=== PATIENT | female | born 1995 | race Caucasian/White ===

== ENCOUNTER → 2018-01-09 | Outpatient (CLI) | payer MEDICAID ==
[~2018-01-09] MED LIST: ACYC-50 PO; ANTIBIOTIC; CIPR250S2 PO; DEXL30CA5 PO; ETHI1TAB26 PO; IBUP-1618 PO; NORG1TAB5 PO; OMEP-137 PO; ONDA4TAB9 PO; PAN40 PO; RANI150C14 PO; SUCR1TAB85 PO
--- NOTE | 2018-01-09 15:06 | RADIOLOGY IMAGING REPORT ---
FACILITY: [facility] - [place] PATIENT NAME: Cara Jackman : 1995 MR: [id number] V: [id number] EXAM DATE: ORDERING PHYSICIAN: ADAN THAKKAR TECHNOLOGIST: Location: [facility] Patient: Cara Jackman : 1995 Visit/Account:[id number] Date of Sevice: 01/09/2018 CERVICAL SPINE 2 OR 3 VIEW COMPARISONS: None. ADDITIONAL PERTINENT HISTORY: Neck pain and cervicalgia. FINDINGS: Vertebral body heights and alignment: Mild reversal of normal cervical lordosis centered at C5-C6. Vertebral bodies: Negative. Disc spaces: Negative. Craniocervical junction: Negative. Cervical thoracic junction: Negative. Prevertebral soft tissues: Negative. Surrounding soft tissues: Negative. IMPRESSION: 1. Mild reversal of normal cervical lordosis centered at C5-C6. 2. Otherwise normal examination. Report Dictated By: Dionisio Milian MD at 01/09/2018 3:00 PM Report E-Signed By: Dionisio Milian MD at 01/09/2018 3:01 PM WSN:[email or web address]
== END ==
LOC: RAD 13:58
DX: M40.50 Lordosis, unspecified, site unspecified (principal)
CPT/HCPCS: 72040

== ENCOUNTER → 2018-04-03 | Outpatient (CLI) | payer MEDICAID ==
[~2018-04-03] MED LIST changes: +HYDR-4309 PO; +LOR5/325 PO; +TRAM-420 PO
--- NOTE | 2018-04-03 15:59 | RADIOLOGY IMAGING REPORT ---
FACILITY: [facility] - [place] PATIENT NAME: Cara Jackman : 1995 MR: [id number] V: [id number] EXAM DATE: ORDERING PHYSICIAN: NOAH HAYWARD TECHNOLOGIST: Location: [facility] [place] Patient: Cara Jackman : 1995 Visit/Account:[id number] Date of Sevice: 04/03/2018 ABDOMEN/PELVIS W/O CONTRAST HISTORY: Possible Kidney stone, lower back pain radiating to left side, hematuria TECHNIQUE: Axial images acquired through the abdomen/pelvis. Coronal and sagittal reformatting also performed. No IV contrast administered. Dose Lowering Technique One of the following dose optimization techniques was utilized in the performance of this exam: Autom ated exposure control; adjustment of the mA and/or kV according to the patient's size; or use of an i terative reconstruction technique. Specific details can be referenced in the facility's radiology C T exam operational policy. COMPARISON: None. FINDINGS: Visualized lung bases: Negative. Hepatobiliary: Postsurgical changes from a cholecystectomy Spleen: Negative. Adrenals: Negative. Pancreas: Negative. Kidneys ureters and bladder: There is a moderate left hydronephrosis and left hydroureter. There is a 3 mm calcification seen along the posterior left side of the bladder. This may be in the distal mo st portion of the left UVJ or has just passed through the left UVJ into the bladder. There are multiple nonobstructing calculi seen in the renal collecting systems bilaterally. The larg est calculus on the right measures approximately 3 mm in diameter. The largest calculus on the left measures approximately 4 mm. Genitalia: Negative. GI: No evidence of bowel obstruction or bowel wall thickening. The appendix is visualized and does not appear inflamed. Vessels/spaces/nodes: There are several mildly prominent lymph nodes seen in the right lower quadran t. A outside sales representative insurance lymph node measures 1.6 x 1.1 cm Bones/soft tissues: There is a small umbilical hernia containing fat Additional findings: None pertinent. IMPRESSION: There is a moderate left hydronephrosis and left hydroureter. A 3 mm calcification is seen along the posterior left side the bladder. This may be in the distalmost portion of the left UVJ or has just passed through the left UVJ into the bladder. Multiple nonobstructing calculi seen in both renal collecting systems Several mildly prominent lymph nodes are identified in the right lower quadrant. These could be reac tive. Clinical correlation needed. The appendix is visualized and does not appear inflamed Results were called to NOAH HAYWARD at 04/03/2018 3:54 PM. Report Dictated By: Ramya Batres MD at 04/03/2018 3:40 PM Report E-Signed By: Ramya Batres MD at 04/03/2018 3:55 PM WSN:[email or web address]
== END ==
LOC: CT 14:56
PROVIDERS: ATTEND Student in an Organized Health Care Education/Training Program
DX: N13.30 Unspecified hydronephrosis (principal); N20.9 Urinary calculus, unspecified; N13.4 Hydroureter; N20.0 Calculus of kidney; R59.0 Localized enlarged lymph nodes
CPT/HCPCS: 74176

== ENCOUNTER 2018-07-11 18:27 | Emergency (ER) | payer MEDICAID ==
[~2018-07-11 18:27] MED LIST changes: +CHOL10005 PO; +CYCL10TA29 PO; +GABA-547 PO; +GABA-549 PO; +NAPR220C12 PO; +OXCA150T47 PO; +SULF-198 PO; +VENL75TA12 PO; +VITA1CAP46 PO
--- NOTE | 2018-07-11 18:40 | ER Report ---
History and Physical Time Seen By MD: 18:37 Hx. of Stated Complaint: Patient with back pain since Monday after leaning over to grab something out of refrigerator. Patient had dry needling and saw PT yesterday. Worse today. HPI/ROS CHIEF COMPLAINT: Low back pain HISTORY OF PRESENT ILLNESS: This is a 22-year-old female presents to the emergency department for low back pain. Patient states that this past Monday she was bending over picking something up out of the refrigerator and developed low back pain. Patient states that she's had left-sided low back pain since then slowly improving over the course of week, did follow-up with her physical therapist tried dry needling which did seem to improve yesterday, however today at 12:00 she states the pain became significantly worse. Patient states that the pain became so intense that she said her come in for further evaluation. Patient has never had imaging of her lower back. Patient denies fevers or chills. No difficulties with urination, no retention. No loss of bowel. REVIEW OF SYSTEMS: Respiratory: No cough, no dyspnea. Cardiovascular: No chest pain, no palpitations. Gastrointestinal: No vomiting, no abdominal pain. Musculoskeletal: As above. Allergies: Coded Allergies: orange juice (Verified Adverse Reaction, Unknown, nausea / vomiting; vaginal infection, 07/11/18) Home Meds Active Scripts Hydrocodone Bit/Acetaminophen (HYDROCODON-ACETAMINOPHEN 5-325) 1 Each Tablet, 1 EACH PO Q4-6H PRN for PAIN, #6 TAB 0 Refills Prov:LEONARDO MITTAL [employer] OFFICER-BC 07/11/18 Sucralfate (CARAFATE) 1 Gm Tablet, 1 GM PO ACHS, #120 TAB Prov:DUC BARRIGA WAREHOUSE PRODUCTION WORKER 01/10/16 Reported Medications Gabapentin (GABAPENTIN) 300 Mg Capsule, 1200 MG PO QHS, CAPSULE 07/11/18 Hydrochlorothiazide (HYDROCHLOROTHIAZIDE) 25 Mg Tablet, 0.5 TAB PO QDAY, TAB 07/11/18 Oxcarbazepine (TRILEPTAL) 150 Mg Tablet, 150 MG PO BID 07/10/18 Cyclobenzaprine Hcl (CYCLOBENZAPRINE HCL) 10 Mg Tablet, 10 MG PO QHS, #9 TAB 07/10/18 Naproxen Sodium (ALEVE) Unknown Strength Capsule, PO TID, CAPSULE 07/10/18 Vitamin B Complex (VITAMIN B COMPLEX) 1 Each Capsule, 1 EACH PO BID, CAPSULE 07/10/18 Cholecalciferol (Vitamin D3) (VITAMIN D3) 1,000 Unit Tablet, 4000 UNIT PO DAILY, TAB 07/10/18 Venlafaxine Hcl (VENLAFAXINE HCL) 75 Mg Tab, 75 MG PO BID, #5 TAB 07/10/18 Gabapentin (GABAPENTIN) 300 Mg Capsule, 900 MG PO BID, CAPSULE 07/10/18 Discontinued Reported Medications Gabapentin (GABAPENTIN) 100 Mg Capsule, 100 MG PO DAILY, CAPSULE 07/10/18 Oxcarbazepine (TRILEPTAL) Unknown Strength Tablet, PO 07/10/18 Discontinued Scripts Sulfamethoxazole/Trimet 800-160 Mg Tab (BACTRIM DS TABLET) 1 Each Tablet, 1 TAB PO Q12H for 3 Days, #6 TAB 0 Refills Prov:YESYNOAH DO 07/10/18 Omeprazole (OMEPRAZOLE) 20 Mg Tablet.dr, 20 MG PO QDAY, #30 TAB Prov:DUC BARRIGA NP 01/10/16 Hydrocodone Bit/Acetaminophen (HYDROCODON-ACETAMINOPHEN 5-325) 1 Each Tablet, 1 EACH PO Q4-6H PRN for pain, #12 TAB 0 Refills Prov:RENATE MADDOX MD 04/03/18 Ondansetron (ONDANSETRON ODT) 4 Mg Tab.rapdis, 4 MG PO Q6H, #10 TAB One tablet every 6 hours as needed for nausea and vomiting. Prov:DUC BARRIGA NP 01/10/16 Past Medical/Surgical History The patient has a past medical and surgical history of seizures, asthma, urinary tract infections, cholecystectomy, wisdom teeth extraction. Reviewed Nurses Notes: Yes Hx Smoking: No Hx Substance Use Disorder: No Hx Alcohol Use: Yes (couple a week) Constitutional Vital Sign - Last 24 Hours 07/11/18 07/11/18 18:30 20:57 Temp 98.1 Pulse 99 94 Resp 16 14 B/P (MAP) 152/88 138/89 (105) Pulse Ox 95 96 O2 Delivery Room Air Room Air Physical Exam General Appearance: The patient is alert, has no immediate need for airway protection and no current signs of toxicity. Eyes: Pupils equal and round no injection. Respiratory: Chest is non tender, lungs are clear to auscultation. Cardiac: regular rate and rhythm. Gastrointestinal: Abdomen is soft and non tender, no masses, bowel sounds nor mal. Musculoskeletal: Neck: Neck is supple and non tender. Mild left lower back pain with palpation. No deformities or crepitus. Extremities have full range of motion and are non tender. Skin: No rashes or lesions. DIFFERENTIAL DIAGNOSIS: After history and physical exam differential diagnosis was considered for back pain including but not limited to muscular pain, herniated disc, spine fracture, intra-abdominal causes and urinary tract infection. Medical Decision Making EKG/Imaging Imaging Location: [facility] - [place] Patient: Cara aJckman : 1995 Visit/Account:[id number] Date of Sevice: 07/11/2018 EXAMINATION: Lumbar spine radiographs 4 views HISTORY: Low back pain. COMPARISON: CT of the abdomen and pelvis from 04/03/2018. FINDINGS: AP, bilateral oblique, and lateral views of the lumbar spine are obtained. Bones: There are 5 nonrib-bearing lumbar type vertebral bodies. Vertebral body heights are maintained. No evidence of acute fracture. Disc spaces: Intervertebral disc heights are maintained. Small anterior osteo phyte at the anterior inferior endplate of L2. Posterior elements: Negative. Alignment: Normal. Hardware: Surgical clips in the right upper quadrant of the abdomen. Soft tissues: Negative. IMPRESSION: No evidence of acute fracture or malalignment of the lumbar spine. Report Dictated By: Moses Koch MD at 07/11/2018 8:12 PM Report E-Signed By: Moses Koch MD at 07/11/2018 8:16 PM WSN:[id number] ED Course/Re-evaluation Clinical Indication for ER IV: IV Access ED Course The patient was admitted to a room. A history and physical were pain. Differential diagnoses were considered. IV was started. 30 mg IV Toradol, 2.5 mg IV Valium were given. An x-ray of the lumbar was negative for any acute abnorma lities. I did review the results with the patient. She states she is feeling much better after medications. I did tell patient that I feel this is a muscular spasm or strain that he will likely resolve with NSAIDs and therapy. I did recommend following up for continued physical therapy, follow-up with her primary care via her for reevaluation. I did send the patient home with a take home pack for hydrocodone and a prescription as well. The patient had no other questions or concerns at this time and was discharged home. Decision to Disposition Date: Jul 11, 2018 Decision to Disposition Time: 20:43 Depart Departure Latest Vital Signs Vital Signs Date Time Temp Pulse Resp B/P (MAP) Pulse Ox O2 Delivery O2 Flow Rate FiO2 07/11/18 20:57 94 14 138/89 (105) 96 Room Air 07/11/18 18:30 98.1 Impression: Primary Impression: Lower back pain Condition: Improved Disposition: HOME OR SELF-CARE Referrals: NOAH HAYWARD DO (PCP) New Scripts Hydrocodone Bit/Acetaminophen (HYDROCODON-ACETAMINOPHEN 5-325) 1 Each Tablet 1 EACH PO Q4-6H PRN for PAIN, #6 TAB 0 Refills Prov: LEONARDO MITTAL-BC 07/11/18 Patient Instructions: Acute Low Back Pain (ED) Additional Instructions: Be sure to follow up with physical therapy for continued treatment. Follow-up with your primary care provider within the next 3-7 days for reevaluation. Take the hydrocodone as prescribed. Continue taking your regular medications as prescribed. Drink plenty of water. Get plenty of rest. Return to the emergency department for any other concerns or worsening symptoms. Problem Qualifiers Primary Impression: Lower back pain Chronicity: acute Back pain laterality: left Sciatica presence: without sciatica Qualified Codes: M54.5 - Low back pain LEONARDO MITTAL [employer]IC W[employer] OFFICER-BC Jul 11, 2018 18:40
[2018-07-11] MEDS ORDERED: HYDR-2966 PO (18:41)
[2018-07-11] MEDS ORDERED: GABA-549 PO (18:42)
[2018-07-11] MEDS ORDERED: ONDANSETRON 4 MG/2 ML VIAL IVP ONE (18:55)
[2018-07-11] MEDS ORDERED: KETOROLAC 30 MG/ML VIAL IVP ONE (18:55)
[2018-07-11] MEDS ORDERED: DIAZEPAM 50 MG/10 ML MDV IM ONE (18:55)
[2018-07-11] MEDS ORDERED: DIAZEPAM 50 MG/10 ML MDV IVP ONE (19:10)
--- NOTE | 2018-07-11 20:21 | RADIOLOGY IMAGING REPORT ---
FACILITY: [facility] - [place] PATIENT NAME: Cara Jackman : 1995 MR: [id number] V: [id number] EXAM DATE: ORDERING PHYSICIAN: LEONARDO MITTAL TECHNOLOGIST: Location: [facility] Patient: Cara Jackman : 1995 Visit/Account:[id number] Date of Sevice: 07/11/2018 EXAMINATION: Lumbar spine radiographs 4 views HISTORY: Low back pain. COMPARISON: CT of the abdomen and pelvis from 04/03/2018. FINDINGS: AP, bilateral oblique, and lateral views of the lumbar spine are obtained. Bones: There are 5 nonrib-bearing lumbar type vertebral bodies. Vertebral body heights are maintaine d. No evidence of acute fracture. Disc spaces: Intervertebral disc heights are maintained. Small anterior osteophyte at the anterior i nferior endplate of L2. Posterior elements: Negative. Alignment: Normal. Hardware: Surgical clips in the right upper quadrant of the abdomen. Soft tissues: Negative. IMPRESSION: No evidence of acute fracture or malalignment of the lumbar spine. Report Dictated By: Moses Koch MD at 07/11/2018 8:12 PM Report E-Signed By: Moses Koch MD at 07/11/2018 8:16 PM WSN:[id number]
[2018-07-11] MEDS ORDERED: HYDR-385 PO (20:44)
[2018-07-11 20:57] VITALS: BP 138/89
[2018-07-11] MEDS ORDERED: ACET/HYDROC 5/325MG TH ER ONLY 2 TAB/BOTTLE PO ONE (21:05)
== END 2018-07-11 21:05 | disposition home or self-care (01) ==
LOC: ER 18:45
DX: M54.5 Low back pain (principal)
CPT/HCPCS: 72120; 96374; 96375; 99284; J1885; J2405; J3360

== ENCOUNTER 2018-08-01 00:58 | Observation (INO) | payer MEDICAID ==
[2018-08-01] VITALS (10 sets, daily range): BP systolic 116–150; BP diastolic 59–90
[~2018-08-01] VITALS: Ht 147.3 cm; Wt 82.1 kg
[~2018-08-01 00:58] MED LIST changes: +HYDR-2966 PO; +HYDR-385 PO; +HYDR12.561 PO; +SCOP1PAT16 TD
[2018-08-01] MEDS ORDERED: ceFAZolin(*) 1 GM VIAL 1 GM in NS(*) 0.9% 100 ML ADDVANT BAG 100 ML IVPB ONE (06:30)
[2018-08-01 06:32] LABS: PLATELET COUNT, AUTOMATED 394 K/uL (150-450)
[2018-08-01] MEDS ORDERED: ROPIVACAINE 0.2% 20 ML VIAL ONE (06:50)
[2018-08-01] MEDS ORDERED: PROPOFOL EMUL(*) 10MG/ML 20 ML 20 ML ONE (07:11)
[2018-08-01] MEDS ORDERED: DEXAMETHASONE SOD 4 MG/ML VIAL ONE (07:11)
[2018-08-01] MEDS ORDERED: ONDANSETRON 4 MG/2 ML VIAL ONE (07:11)
[2018-08-01] MEDS ORDERED: SUGAMMADEX SOD 200 MG/2 ML SDV ONE (07:11)
[2018-08-01] MEDS ORDERED: LIDOCAINE MPF 1% 5 ML VIAL ONE (07:11)
[2018-08-01] MEDS ORDERED: fentaNYL CITR 250 MCG/5 ML AMP ONE (07:11)
[2018-08-01] MEDS ORDERED: ROCURONIUM BROM 10 MG/ML 10 ML ONE (07:11)
[2018-08-01] MEDS ORDERED: KETAMINE HCL-NS 50 MG/5 ML SYR ONE (07:13)
[2018-08-01] MEDS ORDERED: HYDROmorphone HCL 2 MG/ML SDV ONE (07:13)
[2018-08-01] MEDS ORDERED: SUGAMMADEX SOD 500 MG/5 ML SDV ONE (07:24)
[2018-08-01] MEDS ORDERED: BUPIV/EPI 0.25% 1:200,000 50ML INFIL ONE (07:32)
[2018-08-01] MEDS ORDERED: KETOROLAC 30 MG/ML VIAL ONE ×2 (08:54→10:14)
[2018-08-01] MEDS ORDERED: PHENAZOPYRIDINE 200 MG TAB PO ONE (09:30)
[2018-08-01] MEDS: DLR(*) 1000 ML BAG 1,000 ML IV PRN ×2 (09:52→20:48)
[2018-08-01] MEDS ORDERED: SIMETHICONE 80 MG CHEW CHEW PRN (09:55)
[2018-08-01] MEDS ORDERED: PROMETHAZINE 25 MG/ML 1 ML AMP IVP PRN (09:55)
[2018-08-01] MEDS ORDERED: oxyCODONE HCL 5 MG CAP PO PRN (09:55)
[2018-08-01] MEDS ORDERED: ONDANSETRON 4 MG/2 ML VIAL IV PRN (09:55)
[2018-08-01] MEDS ORDERED: MORPHINE 2 MG/ML SYR IVP PRN (09:55)
[2018-08-01] MEDS ORDERED: fentaNYL CITR 100 MCG/2 ML AMP ONE ×3 (10:02→10:31)
--- NOTE | 2018-08-01 10:12 | Post Operative Note ---
Operative Note - MAKE UP ARTIST Operative Day Date: Aug 01, 2018 Time: 09:58 Physicians Surgeon: Noah Crisostomo Wrap Turner: Laine Ford Anesthesia: GET 0.25% marcaine Diagnosis Pre-Op Diagnosis: 22 AUB/HMB -failed conservative medical therapy -Desires sugical management. Post-Op Diagnosis: Same Procedure Findings: Normal uterus and ovaries bilaterally. Normal fallopian tubes bilaterally. Smooth liver, absent galbladder. Procedure(s): RATLH with BS Diagnostic Cystoscopy Nexplanon Removal Specimen Removed:(Maybe N/A): Uterus and Bilateral fallopian tubes Complications: 0 known Fluids Fluids: 2500 cc 300 cc U/o Estimated Blood Loss: 50 cc Dictated Date OP Note Dictated: Aug 01, 2018 Time OP Note Dictated: 10:12 NOAH CRISOSTOMO DO Aug 01, 2018 10:12
[2018-08-01] MEDS ORDERED: LIDOCAINE/SOD BICARB 8.4% SYR ID ONE (10:30)
[2018-08-01] MEDS ORDERED: NORMOSOL R SOLN(*) 1000 ML BAG 1,000 ML IV PRN (10:30)
[2018-08-01] MEDS ORDERED: FAMOTIDINE 20 MG TAB PO ONE (10:30)
[2018-08-01] MEDS ORDERED: MIDAZOLAM 2 MG/2 ML VIAL IVP PRN (10:30)
[2018-08-01] MEDS ORDERED: ceFAZolin(*) 2GM/D5W 50ML 50 ML IVPB ONE (10:30)
--- NOTE | 2018-08-01 12:32 | OPERATIVE REPORT 1 ---
EVENT DATE: August 01, 2018 SURGEON: Eitan Crisostomo DO ANESTHESIOLOGIST: Messi Reich M.D. ANESTHESIA: General endotracheal intubation with 0.25% Marcaine for local only. WOOL SACKER: Laine Ford MD PREOPERATIVE DIAGNOSIS 1. 22-year-old 1, para 1. 2. Abnormal uterine bleeding/heavy menstrual bleeding with failed conservative medical therapy and desires permanent surgical management. POSTOPERATIVE DIAGNOSIS 1. 22-year-old 1, para 1. 2. Abnormal uterine bleeding/heavy menstrual bleeding with failed conservative medical therapy and desires permanent surgical management. PROCEDURE PERFORMED Robotic assisted total laparoscopic hysterectomy with bilateral salpingectomy, diagnostic cystoscopy and Nexplanon removal. FINDINGS Normal uterus and ovaries bilaterally, normal fallopian tubes bilaterally, smooth liver, absent gallbladder. ESTIMATED BLOOD LOSS 50 cc. URINE OUTPUT 300 cc. IV FLUIDS 2500 cc lactated ringers. CONDITION Stable x1; to PACU and then to recovery. COUNTS Correct for all needles, lap, sponge and instruments. COMPLICATIONS None known. INDICATIONS AND CONSENT The patient is 22-year-old 1, para 1 who presented to clinic over the last 1-1/2 years with complaint of abnormal vaginal bleeding. The patient was originally tried on oral contraception with good success initially but with return to daily bleeding many months. She was switched to Depo-Provera and did notice that she did have some psychoses as well as complications with weight gain. The patient was then switched to a levonorgestrel containing IUD and again had heavy bleeding even after the six month initial trial. The patient then desired as a last ditch effort to try Nexplanon but again returned to clinic after about a year complaining of weight gain as well as issues related to heavy regular menses. Other management options were discussed with the patient including endometrial ablation. The patient states that she desires to proceed with definitive surgical management and that her already has a vasectomy and they are done having children and she would just prefer to have the uterus removed if possible. The patient was counseled accordingly and understands her biggest complication is going to be regret from surgery because she is under the age of 28. The patient agrees and signs consents. All risks, benefits and alternatives were given to the patient and she was then taken to the operating room. DESCRIPTION OF PROCEDURE The patient was taken to the operating room, where she was placed in the dorsal supine position. She then underwent general endotracheal intubation. Once under anesthesia, she was then placed in the dorsal lithotomy position. She was prepped and draped in the usual sterile manner. Sterile speculum was placed in the vagina. The cervix was visualized and grasped with Allis clamp. The uterus was sounded to 8 cm. The cervix was sequentially dilated to a 7 Hegar. A [address]-1 needle was then used for a stay stitch. This was done on the anterior and posterior aspects of the cervix. [employer] uterine manipulator was placed easily through the cervix to the fundus of the uterus. The bulb was inflated. The cervical cup was tied to the cervix. The speculum was removed from the vagina. Salamanca catheter was then inserted. At this point, the patient's legs were then lowered out of lithotomy position and attention was turned to the abdomen. A Veress needle was inserted in the umbilicus to achieve normal peritoneum. Once normal peritoneum was achieved, the 8 mm incision was created roughly 5 cm above the umbilicus. Entry site was inspected and found to be without any injury. At this point, additional trocars were placed under direct laparoscopic visualization. Docking of the robot was then undertaken with all robotic arms docked appropriately with instruments placed and visualized under direct laparoscopic visualization. At this point, attention was then turned to the procedure. The right fallopian tube was grasped and dissected off the ovary, dissecting mesosalpinx using bipolar electrocautery and transecting to the cornua of the uterus. The same procedure was performed of the left fallopian tube. The fallopian tubes were then brought through the accessory port. The round ligament on the right was cauterized with bipolar cautery. The round ligament was entered. The utero-ovarian ligament was cauterized and transected with bipolar ligament. The broad ligament anterior leaflets were developed, creating a bladder flap at midline. Once the broad ligament was further dissected, the artery was on the right was visualized. It was cauterized with bipolar cautery and transected. With the uterovesical fascia easily visualized, attention was then turned to the left aspect of the uterus. The left round ligament was grasped with bipolar cautery and transected. The broad ligament on the left side was again entered. Anterior leaflet was again created on the left side in median and midline. A bladder flap was created using blunt dissection in combination with sharp scissor dissection. With the bladder adequately out of the way, the uterine artery was visualized and cauterized and transected with bipolar cautery. With the cervical cup easily palpated, cardinal ligaments were dissected off the vesicouterine fascia. With cardinal ligaments dissected bilaterally, colpotomy was performed using monopolar cautery in a circumferential manner, visualizing the cervical cup. With the colpotomy performed circumferentially, the uterus was then removed vaginally. The vaginal cuff was inspected and found to be hemostatic. At this point, attention was then turned to closing the vaginal cuff. The initial left angle of the vaginal cuff was closed in a [id number] manner with a 0 Vicryl. A 0 V-LOC was then used to close the vaginal cuff from right to left in a running manner. The uterosacral ligaments were included in the vaginal cuff closure for vaginal cuff support. With hemostasis noted, the suture was removed. Pictures were taken. Trocars were removed and the 12 mm accessory port was closed. Under direct laparoscopic visualization using a Giovany-Mary. With the defect closed, the trocars were removed from the abdomen and attention was then turned to the cystoscopy. The Salamanca catheter was removed. The cystoscopy was placed into the urethra with normal saline insufflation. With insufflation being noted, the dome of the bladder was inspected as well as the trigone without any injury noted or suture through the dome or trigone. At this point, bilateral ureteral jets were visualized. The saline was drained from the bladder. The Salamanca catheter was placed inside the bladder. The patient was then cleaned and the drapes were removed. Nexplanon removal: The left arm was marked prior to going to the operating room. The Nexplanon was easily palpated. 0.25% Marcaine was used for anesthesia. The distal end of the Nexplanon was palpated and a small puncture incision was created with #11 blade scalpel. The Nexplanon was easily pushed through the puncture incision and removed and handed to the generator worker to be disposed of accordingly. At this point, Dermabond was placed over the puncture incision. The arm then had Coban wrap for pressure dressing. The patient was then awakened and transferred to the recovery room in stable condition. ALEKSANDR
[2018-08-01] MEDS ORDERED: ACETAMINOPHEN 325 MG TAB PO SCH (13:00)
[2018-08-01] MEDS: KETOROLAC 30 MG/ML VIAL IVP SCH ×2 (16:19→23:24)
[2018-08-01] MEDS: oxyCODONE HCL 5 MG CAP PO PRN (16:56)
[2018-08-01] MEDS: ACETAMINOPHEN 325 MG TAB PO SCH ×2 (18:27→22:10)
[2018-08-01] MEDS: BENZOCAINE/MENTHOL 1 EACH LOZG PO PRN (20:48)
[2018-08-01] MEDS: FAMOTIDINE 20 MG TAB PO SCH (20:52)
[2018-08-01] MEDS: DOCUSATE CALCIUM 240 MG CAP PO SCH (20:52)
[2018-08-01] MEDS: GABAPENTIN 300 MG CAP PO SCH (20:52)
[2018-08-01] MEDS: VENLAFAXINE REG 75 MG TAB PO SCH (20:53)
[2018-08-01] MEDS: OXCARBAZEPINE 150 MG TABLET PO SCH (20:53)
[2018-08-01] MEDS ORDERED: ZOLPIDEM TARTRATE 10 MG TAB PO PRN (21:00)
[2018-08-01] MEDS ORDERED: traZODone HCL 50 MG TAB PO SCH (21:00)
[2018-08-02] MEDS: ACETAMINOPHEN 325 MG TAB PO SCH ×2 (01:54→05:27)
[2018-08-02] MEDS: BENZOCAINE/MENTHOL 1 EACH LOZG PO PRN (02:00)
[2018-08-02] MEDS: DLR(*) 1000 ML BAG 1,000 ML IV PRN (03:10)
[2018-08-02] MEDS: KETOROLAC 30 MG/ML VIAL IVP SCH (05:28)
[2018-08-02 06:41] LABS: PLATELET COUNT, AUTOMATED 307 K/uL (150-450)
[2018-08-02 08:00] VITALS: BP 116/65
[2018-08-02] MEDS ORDERED: FOLIC ACID/CYANOCOB/PYRIDOXINE PO SCH (09:00)
[2018-08-02] MEDS ORDERED: CHOLECALCIFEROL 1000 UNIT TAB PO SCH (09:00)
--- NOTE | 2018-08-02 09:15 | OB/GYN Progress Note ---
OB Subjective Progress Notes Subjective Doing good this morning. Reports pain controlled with po pain medications. Tolerating PO intake. Minimal bleeding. Ambulatory. Still has pineda catheter. GI: NEG Nausea, NEG Vomiting, NEG Flatus, NEG Bowel Movement : Vaginal Bleeding, Scant Pain: Mild, Tolerating PO Pain Meds Neurological: No Headache, No Other Eyes: No Visual Disturbances OB Objective Physical Exam Vital Signs Date Time Temp Pulse Resp B/P (MAP) Pulse Ox O2 Delivery O2 Flow Rate FiO2 08/02/18 07:00 79 93 Nasal Cannula 0.5 08/02/18 03:10 98.8 16 Intake and Output 08/02/18 07:00 Intake Total 5524 ml Output Total 5475 ml Balance 49 ml Intake Oral 810 ml IV Total 4714 ml Output Urine Total 5475 ml General Appearance: Alert/Awake/No Acute Distress Neurological: No Gross deficits Eyes: Normal Extraocular Movement & Vison, PERRLA Cardiovascular: Normal Rhythm & Peripheral Pulses Respiratory: No Respiratory Distress, Clear to Auscultation Abdomen: Soft, Non-Tender, Non-Distended Incision: Clean, Dry, Intact, Dermabond Integumentary: Skin Intact without Lesions or Rash Psychological: Alert & Oriented X3, Appropriate Mood & Affect Result Diagram: 08/02/1862008/01/18621 Assessment and Plan SENIOR CORPORATE ACCOUNTANT Assessment: Stable SENIOR CORPORATE ACCOUNTANT Plan: Discharge Home Today Problems: (1) History of robot-assisted laparoscopic hysterectomy Status: Acute Assessment & Plan: Doing great POD #1. Plan to d/c pineda catheter now. Have patient void. If able to void discharge home. NOAH HAYWARD DO Aug 02, 2018 09:15
[2018-08-02] MEDS ORDERED: OXYC-865 PO (09:17)
[2018-08-02] MEDS ORDERED: IBUP800T37 PO (09:17)
--- NOTE | 2018-08-02 09:20 | OB/GYN Discharge Summary ---
Discharge Summary Reason for Hosp/Final Diag: (1) History of robot-assisted laparoscopic hysterectomy Status: Acute Hospital Course & Plan: Pt presented for scheduled hysterectomy. See patient operative report for details of procedure. Pt remained in the hospital for 1 day post operatively. She was discharged home once she met post op goals. [place] Vital Signs Vital Signs Date Time Temp Pulse Resp B/P (MAP) Pulse Ox O2 Delivery O2 Flow Rate FiO2 08/02/18 07:00 79 93 Nasal Cannula 0.5 08/02/18 03:10 98.8 16 Weight (Pounds): 181 Weight (Ounces): 1.0 Result Diagram: 08/02/1862008/01/18621 Condition: Improved Discharge: Home Home Meds Active Scripts Oxycodone Hcl/Acetaminophen (PERCOCET 5-325 MG TABLET) 1 Each Tablet, 1 EACH PO Q6H, #30 TAB 0 Refills Prov:NOAH HAYWARD DO 08/02/18 Scopolamine (Scopolamine) 1 Mg/3 Day Patch.td.3, 1 PATCH.72H TD ONCE for 1 Day, #1 PATCH.72H 0 Refills APPLY PATCH BEHIND THE EAR ON THE NIGHT PRIOR TO SURGERY. Prov:NOAH HAYWARD DO 07/19/18 Hydrocodone Bit/Acetaminophen (HYDROCODON-ACETAMINOPHEN 5-325) 1 Each Tablet, 1 EACH PO Q4-6H PRN for PAIN, #6 TAB 0 Refills Prov:LEONARDO MITTAL FOOD AND BEVERAGE MANAGER-BC 07/11/18 Sucralfate (CARAFATE) 1 Gm Tablet, 1 GM PO ACHS, #120 TAB Prov:DUC BARRIGA OUTSIDE MACHINIST SUPERVISOR 01/10/16 Reported Medications Naproxen Sodium (ALEVE) 220 Mg Capsule, 500 MG PO BID, CAPSULE 07/25/18 Hydrochlorothiazide (HYDROCHLOROTHIAZIDE) 12.5 Mg Tablet, 1 TAB PO Q3D, TAB 07/25/18 Gabapentin (GABAPENTIN) 300 Mg Capsule, 900 MG PO TID, CAPSULE 07/25/18 Oxcarbazepine (TRILEPTAL) 150 Mg Tablet, 150 MG PO BID 07/10/18 Cyclobenzaprine Hcl (CYCLOBENZAPRINE HCL) 10 Mg Tablet, 10 MG PO QHS, #9 TAB 07/10/18 Vitamin B Complex (VITAMIN B COMPLEX) 1 Each Capsule, 1 EACH PO BID, CAPSULE 07/10/18 Cholecalciferol (Vitamin D3) (VITAMIN D3) 1,000 Unit Tablet, 4000 UNIT PO DAILY, TAB 07/10/18 Venlafaxine Hcl (VENLAFAXINE HCL) 75 Mg Tab, 75 MG PO BID, #5 TAB 07/10/18 Follow up with: [facility] [phone], Dr. Hayward [phone] Follow up in: 2 wks PO Discharge Diet: As Tolerates, Increase Fluid Intake Discharge Activity: As Tolerates, No Heavy Lifting > 10lb, Pelvic Rest NOAH HAYWARD DO Aug 02, 2018 09:20
[2018-08-02] MEDS: oxyCODONE HCL 5 MG CAP PO PRN (09:28)
[2018-08-02] MEDS: GABAPENTIN 300 MG CAP PO SCH (09:29)
[2018-08-02] MEDS: DOCUSATE CALCIUM 240 MG CAP PO SCH (09:30)
[2018-08-02] MEDS: FAMOTIDINE 20 MG TAB PO SCH (09:30)
[2018-08-02] MEDS: VENLAFAXINE REG 75 MG TAB PO SCH (09:31)
[2018-08-02] MEDS: OXCARBAZEPINE 150 MG TABLET PO SCH (09:31)
[2018-08-02] MEDS ORDERED: INFLUENZA VIRUS VAC 0.5ML SYR IM ONLY ONE (09:55)
[2018-08-02] MEDS ORDERED: ACETAMINOPHEN 325 MG TAB PO SCH (10:00)
[2018-08-02] MEDS ORDERED: IBUPROFEN 800 MG TAB PO SCH (11:00)
== END 2018-08-02 09:18 | disposition home or self-care (01) ==
LOC: OR 00:58 → OB 11:20
PROVIDERS: ADMIT Student in an Organized Health Care Education/Training Program; ATTEND Student in an Organized Health Care Education/Training Program
DX: N93.8 Other specified abnormal uterine and vaginal bleeding (principal); N92.0 Excessive and frequent menstruation with regular cycle
CPT/HCPCS: 36415; 58571; 84703; 85025; 88307; G0378; J0690; J1100; J1170; J1885; J2001; J2250; J2270; J2405; J2704; J2795; J3010; J3490; J7050; S2900; 82310; 82374; 82435; 82565; 82947; 84132; 84295; 84520

== ENCOUNTER 2018-09-28 15:51 | Emergency (ER) | payer MEDICAID ==
[~2018-09-28 15:51] MED LIST changes: -ONDA4TAB97 PO; -TAMS0.4C25 PO
--- NOTE | 2018-09-28 15:57 | ER Report ---
History and Physical Time Seen By MD: 15:58 HPI/ROS CHIEF COMPLAINT: left flank pain HISTORY OF PRESENT ILLNESS: Patient is a 23 year old female that slipped yesterday on the ice. Patient went to urgent care and had x-rays of her hips, coccyx, and spine. Patient states nothing was broken. Patient having pain on her left flank and LLQ, LUQ. Patient went her PCP today for the pain and burning with urination. Patient was found to have significant amount of blood in her urine. Patient was sent to the ED. Patient states the pain in her back and abdomen also go into her vagina. Patient had a hysterectomy about 7 weeks ago. Patient was seen at [facility]. While there she had multiple x-rays which were negative. Patient was discharged home. Patient has followed up with Shreya Medellin nurse practitioner, and was found to have hematuria. Due to the hematuria she is concerned about possible kidney stone and referred the patient to the emergency room. Patient states that she does have a significant amount of discomfort. She denies any fevers or chills. REVIEW OF SYSTEMS: Respiratory: No cough, no dyspnea. Cardiovascular: No chest pain, no palpitations. Gastrointestinal: No vomiting, see HPI Musculoskeletal: No back pain. Allergies: Coded Allergies: orange juice (Verified Adverse Reaction, Unknown, nausea / vomiting; vaginal infection, 07/11/18) Home Meds Active Scripts Ondansetron Hcl (ZOFRAN) 4 Mg Tablet, 4 MG PO Q6H PRN for NAUSEA/VOMITING, #20 TAB Prov:SOLE URENA [facility] 09/28/18 Hydrocodone Bit/Acetaminophen (HYDROCODON-ACETAMINOPHEN 5-325) 1 Each Tablet, 1 EACH PO Q4-6H PRN for PAIN, #8 TAB Prov:SOLE URENA [facility] 09/28/18 Tamsulosin Hcl (FLOMAX) 0.4 Mg Cap.er.24h, 0.4 MG PO DAILY, #15 CAP Prov:SOLE URENA [facility] 09/28/18 Cephalexin 500 Mg Tab (KEFLEX 500 MG TAB) 500 Mg Tablet, 500 MG PO Q8H, #21 TAB 0 Refills Prov:NOAH HAYWARD DO 08/10/18 Ibuprofen (IBUPROFEN) 800 Mg Tablet, 800 MG PO Q8H@0300,1100,1900, #20 TAB 0 Refills Prov:NOAH HAYWARD DO 08/02/18 Sucralfate (CARAFATE) 1 Gm Tablet, 1 GM PO ACHS, #120 TAB Prov:DUC BARRIGA Danni RECRUITMENT MANAGER 01/10/16 Reported Medications Naproxen Sodium (ALEVE) 220 Mg Capsule, 500 MG PO BID, CAPSULE 07/25/18 Hydrochlorothiazide (HYDROCHLOROTHIAZIDE) 12.5 Mg Tablet, 1 TAB PO Q3D, TAB 07/25/18 Gabapentin (GABAPENTIN) 300 Mg Capsule, 900 MG PO TID, CAPSULE 07/25/18 Oxcarbazepine (TRILEPTAL) 150 Mg Tablet, 150 MG PO BID 07/10/18 Cyclobenzaprine Hcl (CYCLOBENZAPRINE HCL) 10 Mg Tablet, 10 MG PO QHS, #9 TAB 07/10/18 Vitamin B Complex (VITAMIN B COMPLEX) 1 Each Capsule, 1 EACH PO BID, CAPSULE 07/10/18 Cholecalciferol (Vitamin D3) (VITAMIN D3) 1,000 Unit Tablet, 4000 UNIT PO DAILY, TAB 07/10/18 Venlafaxine Hcl (VENLAFAXINE HCL) 75 Mg Tab, 75 MG PO BID, #5 TAB 07/10/18 Reviewed Nurses Notes: Yes Hx Smoking: No Smoking Status: Former Smoker, Light Tobacco Smoker Hx Substance Use Disorder: No Hx Alcohol Use: No (ONCE A MONTH ) Constitutional Vital Sign - Last 24 Hours 09/28/18 09/28/18 09/28/18 09/28/18 16:02 16:04 16:06 16:21 Temp 98.0 Pulse 90 91 84 Resp 16 B/P (MAP) 145/81 145/81 (102) Pulse Ox 92 92 93 O2 Delivery Room Air 09/28/18 09/28/18 09/28/18 09/28/18 16:36 16:51 17:06 17:21 Pulse 85 81 93 85 Pulse Ox 92 92 93 95 09/28/18 09/28/18 17:30 17:36 Pulse 81 B/P (MAP) 140/69 (92) Pulse Ox 92 Physical Exam General Appearance: The patient is alert, has no immediate need for airway protection and no current signs of toxicity. Respiratory: Chest is non tender, lungs are clear to auscultation. Cardiac: regular rate and rhythm Gastrointestinal: tender to palpation over left flank area. Tender to palpitation throughout lower abdomen, specifically LLQ, and tender LUQ, no masses, bowel sounds normal. DIFFERENTIAL DIAGNOSIS: After history and physical exam differential diagnosis was considered for flank pain including but not limited to musculoskeletal causes, kidney stone, pyelonephritis, shingles, and intra-abdominal causes such as diverticulitis and appendicitis. Medical Decision Making Data Points Result Diagram: 09/28/18 1753 09/28/18 1753 Laboratory Hematology Test 09/28/18 00:00 09/28/18 17:53 09/28/18 18:48 Urine HCG, Qualitative Negative (NEGATIVE) Red Blood Count 5.22 M/uL (4.17-5.56) Mean Corpuscular Volume 86.0 fL (80.0-96.0) Mean Corpuscular Hemoglobin 29.4 pg (26.0-33.0) Mean Corpuscular Hemoglobin Concent 34.2 g/dL (32.0-36.0) Red Cell Distribution Width 13.0 % (11.5-14.5) Mean Platelet Volume 8.0 fL (7.2-11.1) Neutrophils (%) (Auto) 57.4 % (39.4-72.5) Lymphocytes (%) (Auto) 33.3 % (17.6-49.6) Monocytes (%) (Auto) 8.4 % (4.1-12.4) Eosinophils (%) (Auto) 0.1 % (0.4-6.7) Basophils (%) (Auto) 0.8 % (0.3-1.4) Nucleated RBC Relative Count (auto) 0.0 /100WBC Neutrophils # (Auto) 6.0 K/uL (2.0-7.4) Lymphocytes # (Auto) 3.5 K/uL (1.3-3.6) Monocytes # (Auto) 0.9 K/uL (0.3-1.0) Eosinophils # (Auto) 0.0 K/uL (0.0-0.5) Basophils # (Auto) 0.1 K/uL (0.0-0.1) Nucleated RBC Absolute Count (auto) 0.00 K/uL Sodium Level 139 mmol/L (137-145) Potassium Level 3.7 mmol/L (3.5-5.0) Chloride Level 103 mmol/L (98-107) Carbon Dioxide Level 25 mmol/L (22-31) Blood Urea Nitrogen 14 mg/dl (7-18) Creatinine 0.80 mg/dl (0.52-1.04) Glomerular Filtration Rate Calc > 60.0 Random Glucose 74 mg/dl (75-110) Calcium Level 9.7 mg/dl (8.4-10.2) Total Bilirubin 0.5 mg/dl (0.2-1.3) Aspartate Amino Transf (AST/SGOT) 26 U/L (0-35) Alanine Aminotransferase (ALT/SGPT) 32 U/L (0-56) Alkaline Phosphatase 68 U/L (0-126) Total Protein 7.9 g/dl (6.3-8.2) Albumin 4.3 g/dl (3.5-5.0) Chemistry Test 09/28/18 00:00 09/28/18 17:53 09/28/18 18:48 Urine HCG, Qualitative Negative (NEGATIVE) White Blood Count 10.5 k/uL (4.5-11.0) Red Blood Count 5.22 M/uL (4.17-5.56) Hemoglobin 15.4 g/dL (12.0-16.0) Hematocrit 44.9 % (34.0-47.0) Mean Corpuscular Volume 86.0 fL (80.0-96.0) Mean Corpuscular Hemoglobin 29.4 pg (26.0-33.0) Mean Corpuscular Hemoglobin Concent 34.2 g/dL (32.0-36.0) Red Cell Distribution Width 13.0 % (11.5-14.5) Platelet Count 392 K/uL (150-450) Mean Platelet Volume 8.0 fL (7.2-11.1) Neutrophils (%) (Auto) 57.4 % (39.4-72.5) Lymphocytes (%) (Auto) 33.3 % (17.6-49.6) Monocytes (%) (Auto) 8.4 % (4.1-12.4) Eosinophils (%) (Auto) 0.1 % (0.4-6.7) Basophils (%) (Auto) 0.8 % (0.3-1.4) Nucleated RBC Relative Count (auto) 0.0 /100WBC Neutrophils # (Auto) 6.0 K/uL (2.0-7.4) Lymphocytes # (Auto) 3.5 K/uL (1.3-3.6) Monocytes # (Auto) 0.9 K/uL (0.3-1.0) Eosinophils # (Auto) 0.0 K/uL (0.0-0.5) Basophils # (Auto) 0.1 K/uL (0.0-0.1) Nucleated RBC Absolute Count (auto) 0.00 K/uL Glomerular Filtration Rate Calc > 60.0 Calcium Level 9.7 mg/dl (8.4-10.2) Total Bilirubin 0.5 mg/dl (0.2-1.3) Aspartate Amino Transf (AST/SGOT) 26 U/L (0-35) Alanine Aminotransferase (ALT/SGPT) 32 U/L (0-56) Alkaline Phosphatase 68 U/L (0-126) Total Protein 7.9 g/dl (6.3-8.2) Albumin 4.3 g/dl (3.5-5.0) Urinalysis Test 09/28/18 00:00 Urine HCG, Qualitative Negative (NEGATIVE) Microbiology Microbiology Date/Time Source Procedure Growth Status 09/28/18 18:48 Cervical Wet Prep - Final Complete EKG/Imaging Imaging EXAMINATION: CT abdomen and pelvis with contrast COMPARISON: CT 04/03/2018. HISTORY: flank pain, vaginal pain, hematuria PROCEDURE: Multiplanar contrast enhanced CT of the abdomen and pelvis with 75 mL intravenous Isovue 370. One of the following dose optimization techniques was utilized in the performance of this exam: Automated exposure control; adjustment of the mA and/or kV according to the patient's size; or use of an iterative reconstruction technique. Specific details can be referenced in the facility's radiology CT exam operational policy. FINDINGS: Visualized thorax: Negative. Liver: Fatty infiltration along falciform ligament. Gallbladder and biliary system: Cholecystectomy. No bile duct dilation. Spleen: Negative. Pancreas: Negative. Adrenal glands: Negative. Kidneys and bladder: There are a few punctate nonobstructing stones bilaterally. Mild left-sided pelvocaliectasis with a 3 mm stone either at the left ureterovesical junction or already within the urinary bladder; this is unchanged since 04/03/2018. Vessels: Within normal limits. Bowel and mesentery: Stomach, small bowel, and appendix are unremarkable. Small amount stool in the colon. No bowel or mesenteric inflammation. Pelvic organs: Hysterectomy. No adnexal mass. Lymph nodes: Mildly prominent lymph nodes in the right lower quadrant mesentery are nonspecific but unchanged. Free air/free fluid: None. Abdominal wall and osseous structures: Negative. IMPRESSION: 1. 3 mm urolithiasis either at the left ureterovesical junction or already within the urinary bladder is unchanged since 04/03/2018. Consider urology consultation. 2. Left-sided mild pelvocaliectasis and ureterectasis is also unchanged. 3. Bilateral punctate nonobstructing nephrolithiasis. Report Dictated By: Mike Andre MD at 09/28/2018 6:24 PM Report E-Signed By: Mike Andre MD at 09/28/2018 6:33 PM ED Course/Re-evaluation ED Course Patient was medicated examined, history and physical were obtained. Differential diagnoses were considered. On examination patient does have some tenderness to the left flank. There is no bruising noted on exam. A urinalysis had been collected previously and is reviewed. Patient did have large amount of blood. A CT scan of the abdomen and pelvis is done as well as a CBC, CMP. Results did show the patient has a stone which has been present since March. No other acute findings. No fluid collection or abscess noted. A pelvic exam was done as described below. The wet prep was unremarkable. A chlamydia and gonorrhea were sent for evaluation. We will call with results if the results are positive. Patient is to be discharged home. We will give her a limited supply of pain medication, Flomax as well as Zofran. She is to follow-up with her primary care provider in the next week. I will like her to follow-up with urology. I discussed with patient who verbalized understanding and agreement with plan. Patient did state that she has concerns about insurance. She states that this is the last day of her Medicaid and she will have insurance until October. She asked if she could delay seeing urologist until then. We did discuss with patient that as long as she is feeling well, she is afebrile that she can certainly follow-up in October when she has insurance. However if she is any change in symptoms she is return to the emergency room. Pelvic exam: The vulva was normal no lesions. The vagina did not have significant discharge. The cervix was surgically absent. The uterus surgically absent. The adnexa had no masses and no tenderness. The exam was performed with a automatic stacker. Decision to Disposition Date: Sep 28, 2018 Decision to Disposition Time: 19:31 Depart Departure Latest Vital Signs Vital Signs Date Time Temp Pulse Resp B/P (MAP) Pulse Ox O2 Delivery O2 Flow Rate FiO2 09/28/18 17:36 81 92 09/28/18 17:30 140/69 (92) 09/28/18 16:02 98.0 16 Room Air Impression: Primary Impression: Kidney stone Condition: Improved Disposition: HOME OR SELF-CARE Referrals: NOAH HAYWARD DO (PCP) YESI ERNST MD, ERIC J MD New Scripts Ondansetron Hcl (ZOFRAN) 4 Mg Tablet 4 MG PO Q6H PRN for NAUSEA/VOMITING, #20 TAB Prov: SOLE URENA 09/28/18 Hydrocodone Bit/Acetaminophen (HYDROCODON-ACETAMINOPHEN 5-325) 1 Each Tablet 1 EACH PO Q4-6H PRN for PAIN, #8 TAB Prov: SOLE URENA 09/28/18 Tamsulosin Hcl (FLOMAX) 0.4 Mg Cap.er.24h 0.4 MG PO DAILY, #15 CAP Prov: SOLE URENA 09/28/18 Patient Instructions: Kidney Stones (ED) Additional Instructions: Increase fluid intake. Get plenty of rest. Follow up with a Urologist, call next week to make an appointment. Return to the ER if condition worsens. Continue with normal medications. SOLE URENA Sep 28, 2018 15:57
[2018-09-28] MEDS ORDERED: IOPAMIDOL 76% 75 ML INFUS BTL 0 ML ONE (17:06)
[2018-09-28] MEDS ORDERED: IOPAMIDOL 76% 75 ML INFUS BTL 75 ML ONE (17:39)
[2018-09-28 18:05] LABS: PLATELET COUNT, AUTOMATED 392 K/uL (150-450)
[2018-09-28] MEDS ORDERED: ONDANSETRON 4 MG/2 ML VIAL IVP ONE (18:30)
[2018-09-28] MEDS ORDERED: NS(*) 0.9% 500 ML BAG 500 ML IV ONE (18:30)
--- NOTE | 2018-09-28 18:37 | RADIOLOGY IMAGING REPORT ---
FACILITY: [facility] [place] PATIENT NAME: Cara Jackman : 1995 MR: [id number] V: [id number] EXAM DATE: ORDERING PHYSICIAN: SOLE URENA TECHNOLOGIST: Location: [facility] Patient: Cara Jackman : 1995 Visit/Account:[id number] Date of Sevice: 09/28/2018 EXAMINATION: CT abdomen and pelvis with contrast COMPARISON: CT 04/03/2018. HISTORY: flank pain, vaginal pain, hematuria PROCEDURE: Multiplanar contrast enhanced CT of the abdomen and pelvis with 75 mL intravenous Isovue 3 70. One of the following dose optimization techniques was utilized in the performance of this exam: A utomated exposure control; adjustment of the mA and/or kV according to the patient's size; or use of an iterative reconstruction technique. Specific details can be referenced in the facility's radiolo gy CT exam operational policy. FINDINGS: Visualized thorax: Negative. Liver: Fatty infiltration along falciform ligament. Gallbladder and biliary system: Cholecystectomy. No bile duct dilation. Spleen: Negative. Pancreas: Negative. Adrenal glands: Negative. Kidneys and bladder: There are a few punctate nonobstructing stones bilaterally. Mild left-sided pelv ocaliectasis with a 3 mm stone either at the left ureterovesical junction or already within the urina ry bladder; this is unchanged since 04/03/2018. Vessels: Within normal limits. Bowel and mesentery: Stomach, small bowel, and appendix are unremarkable. Small amount stool in the c olon. No bowel or mesenteric inflammation. Pelvic organs: Hysterectomy. No adnexal mass. Lymph nodes: Mildly prominent lymph nodes in the right lower quadrant mesentery are nonspecific but u nchanged. Free air/free fluid: None. Abdominal wall and osseous structures: Negative. IMPRESSION: 1. 3 mm urolithiasis either at the left ureterovesical junction or already within the urinary bladder is unchanged since 04/03/2018. Consider urology consultation. 2. Left-sided mild pelvocaliectasis and ureterectasis is also unchanged. 3. Bilateral punctate nonobstructing nephrolithiasis. Report Dictated By: Mike Andre MD at 09/28/2018 6:24 PM Report E-Signed By: Mike Andre MD at 09/28/2018 6:33 PM WSN:[id number]
[2018-09-28] MEDS ORDERED: TAMS0.4C25 PO (19:28)
[2018-09-28] MEDS ORDERED: ONDA4TAB97 PO (19:28)
[2018-09-28] MEDS ORDERED: HYDR-385 PO (19:28)
[2018-09-28 19:30] VITALS: BP 121/73
== END 2018-09-28 19:45 | disposition home or self-care (01) ==
LOC: ER 16:11
DX: N20.0 Calculus of kidney (principal)
CPT/HCPCS: 74177; 81025; 85025; 87210; 87491; 87591; 96374; 99284; J2405; J7040; Q9967; 82040; 82247; 82310; 82374; 82435; 82565; 82947; 84075; 84132; 84155; 84295; 84450; 84460; 84520

== ENCOUNTER → 2018-09-28 | Outpatient (CLI) | payer MEDICAID ==
[~2018-09-28] MED LIST changes: +CEPH500T7 PO; -HYDR-4309 PO; +HYDR-653 PO; +IBUP800T37 PO; +ONDA4TAB97 PO; +OXYC-865 PO; +TAMS0.4C25 PO
== END ==
LOC: LAB 14:15
PROVIDERS: ATTEND Nurse Practitioner Primary Care
DX: R30.0 Dysuria (principal)
CPT/HCPCS: 81001

== ENCOUNTER 2018-11-05 00:54 | Day surgery (SDC) | payer BC ==
[~2018-11-05] VITALS: Ht 147.3 cm; Wt 84.4 kg
[~2018-11-05 00:54] MED LIST changes: +ONDA4TAB97 PO; +TAMS0.4C25 PO; +TRAZ50TA34 PO
[2018-11-05] MEDS ORDERED: fentaNYL CITR 100 MCG/2 ML AMP ONE ×2 (07:38→11:09)
[2018-11-05] MEDS ORDERED: PROPOFOL EMUL(*) 10MG/ML 20 ML 20 ML ONE (07:39)
[2018-11-05] MEDS ORDERED: LIDOCAINE MPF 1% 5 ML VIAL ONE (07:39)
[2018-11-05] MEDS ORDERED: DEXAMETHASONE SOD PHOS 10MG/ML ONE (07:39)
[2018-11-05] MEDS ORDERED: ONDANSETRON 4 MG/2 ML VIAL ONE (07:39)
[2018-11-05 08:23] VITALS: BP 131/76
[2018-11-05] MEDS ORDERED: MIDAZOLAM 2 MG/2 ML VIAL IVP PRN (08:40)
[2018-11-05] MEDS ORDERED: LIDOCAINE/SOD BICARB 8.4% SYR ID ONE (08:40)
[2018-11-05] MEDS ORDERED: LEVOFLOXACIN/D5W*500 MG/100 ML 100 ML IVPB ONE (08:40)
[2018-11-05] MEDS ORDERED: NORMOSOL R SOLN(*) 1000 ML BAG 1,000 ML IV PRN (08:40)
[2018-11-05] MEDS ORDERED: FAMOTIDINE 20 MG TAB PO ONE (08:40)
[2018-11-05] MEDS ORDERED: KETAMINE HCL 200 MG/20 ML MDV ONE (09:04)
[2018-11-05] MEDS ORDERED: IOPAMIDOL-200 50 ML VIAL IS ONE (09:21)
[2018-11-05] MEDS ORDERED: LIDOCAINE 2% JELLY 5 ML TUBE ONE (09:25)
[2018-11-05] MEDS ORDERED: KETOROLAC 30 MG/ML VIAL ONE (09:47)
[2018-11-05] MEDS ORDERED: HYDR-385 PO (10:38)
[2018-11-05] MEDS ORDERED: PROMETHAZINE 25 MG/ML 1 ML AMP ONE (10:56)
--- NOTE | 2018-11-05 11:04 | RADIOLOGY IMAGING REPORT ---
FACILITY: [facility] PATIENT NAME: Cara Yeager : 1995 MR: [id number] V: [id number] EXAM DATE: ORDERING PHYSICIAN: VEE VERA TECHNOLOGIST: Location: [facility] [place] Patient: Cara Yeager : 1995 Visit/Account:[id number] Date of Sevice: 11/05/2018 Technique: C-ARM FLUORO 1 HR HISTORY: STONES Comparison studies: None FINDINGS: Multiple operative fluoroscopic images were obtained of the left hemipelvis. There has bee n placement of an internal left-sided ureteral catheter. Air Kerma: 9.6 mGy IMPRESSION: 1. Intraoperative fluoroscopic radiographs as described above. Please see operative report for furt her details. Report Dictated By: Alexi Silver DO at 11/05/2018 10:14 AM Report E-Signed By: lAexi Silver DO at 11/05/2018 11:00 AM WSN:[id number]
[2018-11-05 11:26] VITALS: BP 131/74
[2018-11-05 11:32] VITALS: BP 138/83
[2018-11-05 11:33] VITALS: BP 134/82
--- NOTE | 2018-11-05 11:36 | NUR ---
1126-PT BROUGHT TO NH FROM PACU ON CART IN SF POSITION. VSS. WILL CONTINUE TO MONITOR. SIMON ANDREW BEDSIDE FROM TAYLER OCONNOR. PT STATES SHE WOULD LIKE TO GET UP AT THIS TIME AND USE BATHROOM. PT TRAILED ON ROOM AIR AT THIS TIME 1136-PT DENIES DIZZINESS AND WEAKNESS ON SITTING AND STANDING . APPEARS TO BE STEADY ON FEET AMBULATES INDEPENDENTLY TO BATHROOM.
--- NOTE | 2018-11-05 11:50 | NUR ---
1150-PT TRAILED BACK ON ROOM AIR.
--- NOTE | 2018-11-05 12:11 | OPERATIVE REPORT 1 ---
EVENT DATE: November 05, 2018 SURGEON: Adonis Austin MD ANESTHESIOLOGIST: Senthil Garcia MD ANESTHESIA: LMA/general. KNOCKDOWN MAN: None. PREOPERATIVE DIAGNOSIS Impacted distal left ureteral calculus. POSTOPERATIVE DIAGNOSIS Impacted distal left ureteral calculus. PROCEDURE PERFORMED Left ureteroscopy. Retrograde pyelograms and stent placement. DESCRIPTION OF PROCEDURE Patient was brought to the operating room and after the adequate induction of general anesthesia she was placed in the relaxed dorsal lithotomy position. Genitalia were scrubbed, prepped and draped in a sterile fashion and the bladder examined with the rigid cystoscope. No mucosal abnormalities were noted within the bladder. A sensory wire was advanced into the left ureteral orifice and then up to the left renal pelvis. I was then able to back-load the Colin right ureteroscope over the wire and use this as a guide to engage the left ureteral orifice and advance the scope. There was significant edema in the distal ureter and a clear point of transition from the edematous point to the slightly dilated more proximal ureter. I was able to advance the scope up and over the iliac vessels but was unable to identify a calculus. I then withdrew the scope, having dilated the distal ureter with the scope and positioned a 24 cm 5-Malay double J sent with pull-out string. Its position was confirmed fluoroscopically. The patient tolerated the procedure well. She was aroused from anesthesia and then transported to PACU in stable condition. ALEKSANDR
[2018-11-09] MEDS ORDERED: SULF-198 PO (09:23)
== END 2018-11-05 11:26 | disposition home or self-care (01) ==
LOC: OR 00:54
PROVIDERS: ATTEND Urology
DX: N20.1 Calculus of ureter (principal)
CPT/HCPCS: 36416; 52332; 52351; 76000; 82948; C1769; C2617; J1100; J1885; J1956; J2001; J2250; J2405; J2550; J2704; J3010; J3490; Q9966

== ENCOUNTER → 2018-11-09 | Outpatient (CLI) | payer BC ==
--- NOTE | 2018-11-09 09:07 | RADIOLOGY IMAGING REPORT ---
FACILITY: [facility] [place]IENT NAME: Cara Yeager : 1995 MR: [id number] V: [id number] EXAM DATE: ORDERING PHYSICIAN: VEE VERA TECHNOLOGIST: Location: [facility] [place] Patient: Cara Yeager : 1995 Visit/Account:[id number] Date of Sevice: 11/09/2018 Exam type: KUB SINGLE VIEW ABDOMEN History: confirm location of stent prior to removal Comparison: KUB January 10, [address] abdomen pelvis April 03, 2018. Findings: There is a nonspecific bowel gas pattern present. There is a left ureteral stent in place. The dist al portion of the pigtail crosses midline towards the right low within the pelvis. The proximal pigt ail projects just lateral to the left transverse processes of L2 and L3. Surgical clips identified i n the right upper quadrant of abdomen. No pathologic intra-abdominal calcifications are identified IMPRESSION: 1. Left ureteral stent as described above Nonspecific bowel gas pattern Report Dictated By: Ramya Batres MD at 11/09/2018 9:00 AM Report E-Signed By: Ramya Batres MD at 11/09/2018 9:02 AM WSN:[id number]
== END ==
LOC: RAD 08:36
PROVIDERS: ATTEND Urology
DX: Z01.818 Encounter for other preprocedural examination (principal); N20.0 Calculus of kidney
CPT/HCPCS: 74018

== ENCOUNTER → 2019-02-11 | Outpatient (CLI) | payer BC | LOC: LAB 14:44 | PROVIDERS: ATTEND Student in an Organized Health Care Education/Training Program | DX: R30.0 Dysuria (principal) | CPT/HCPCS: 87088 ==

== ENCOUNTER → 2019-03-05 | Outpatient (CLI) | payer BC | LOC: RESP 08:34 | PROVIDERS: ATTEND Nurse Practitioner Family | DX: G47.33 Obstructive sleep apnea (adult) (pediatric) (principal) ==

== ENCOUNTER → 2019-03-16 | Outpatient (REF) | payer BC | LOC: ZZSENDIN 12:01 | PROVIDERS: ATTEND Student in an Organized Health Care Education/Training Program | DX: R19.7 Diarrhea, unspecified (principal) | CPT/HCPCS: 87045; 87177; 87324; 87449 ==

== ENCOUNTER → 2019-03-22 | Outpatient (CLI) | payer BC ==
[~2019-03-22] MED LIST changes: +AZIT-17 PO; +IOPAMIDOL 76% 100 ML INFUS BTL 100 ML ONE; +METR-1 PO
--- NOTE | 2019-03-22 21:00 | RADIOLOGY IMAGING REPORT ---
FACILITY: [facility] [place] PATIENT NAME: Cara Yeager : 1995 MR: [id number] V: [id number] EXAM DATE: ORDERING PHYSICIAN: ROBERT ZELAYA TECHNOLOGIST: Location: [facility] Patient: Cara Yeager : 1995 Visit/Account:[id number] Date of Sevice: 03/22/2019 CT ABDOMEN PELVIS W/ CON Additional pertinent History: Abdominal pain TECHNIQUE: Spiral scan was through the abdomen and pelvis during injection of nonionic iodinated in travenous contrast. Contrast: 75 mL of IV Isovue-370. One of the following dose optimization techniques was utilized in the performance of this exam: Autom ated exposure control; adjustment of the mA and/or kV according to the patient's size; or use of an i terative reconstruction technique. Specific details can be referenced in the facility's radiology C T exam operational policy. COMPARISON STUDIES: 2018 FINDINGS: Liver / biliary: No liver lesions. Status post cholecystectomy Pancreas: negative Spleen: negative Adrenal glands: negative Kidneys / retroperitoneum: Several nonobstructing 2 mm stones in both kidneys. Following the course o f both ureters to the bladder demonstrates no ureteral stone or ureteral obstructive change. Pelvic structures: 2.9 x 2.4 cm cyst in the right ovary. No free fluid noted within the pelvis. Bowel / peritoneum / mesenteries: No bowel inflammation. Appendix normal with no evidence of appendic itis. Vessels: negative Musculoskeletal / Body wall: Unremarkable lumbar and sacral spine with no acute pathology noted. Lymph node assessment: negative Lower chest: negative IMPRESSION: 1. Several nonobstructing bilateral 2 mm stones within both kidneys. No renal obstructive uropathy ch manuel noted. 2. 2.9 x 2.4 cm right ovarian cyst. No obvious free fluid noted. 3. Normal appendix Report Dictated By: Earl Sears MD at 03/22/2019 8:42 PM Report E-Signed By: Earl Sears MD at 03/22/2019 8:56 PM WSN:[id number]
== END ==
LOC: CT 19:30
PROVIDERS: ATTEND Nurse Practitioner Family
DX: R10.9 Unspecified abdominal pain (principal); N20.0 Calculus of kidney; N83.201 Unspecified ovarian cyst, right side
CPT/HCPCS: 74177; Q9967

== ENCOUNTER → 2019-03-22 | Outpatient (REF) | payer BC ==
[~2019-03-22] MED LIST changes: -IOPAMIDOL 76% 100 ML INFUS BTL 100 ML ONE
[2019-03-22 18:25] LABS: PLATELET COUNT, AUTOMATED 432 K/uL (150-450)
== END ==
PROVIDERS: ATTEND Nurse Practitioner Family
DX: R19.7 Diarrhea, unspecified (principal)
CPT/HCPCS: 82040; 82247; 82310; 82374; 82435; 82565; 82947; 84075; 84132; 84155; 84295; 84450; 84460; 84520; 85025

== ENCOUNTER 2019-03-27 11:28 | Observation (INO) | payer BC ==
[~2019-03-27 11:28] MED LIST changes: -B CO PO; -LACT1CAP6 PO; -NAPR500T31 PO; -VENL75CA58 PO; -VENL75TA98 PO
--- NOTE | 2019-03-27 11:44 | ER Report ---
History and Physical Time Seen By MD: 11:42 HPI/ROS CHIEF COMPLAINT: Trauma fall HISTORY OF PRESENT ILLNESS: 23-year-old female reportedly fell off a ladder unclear exactly how high she was at time of the fall onto a hard surface at a school EMS was notified she was markedly confused and difficult to arouse brought her here via EMS in full spinal precautions. On arrival here she is able to open her eyes on command she is still me her name and she is having a positive findings neurologically airway was intact on arrival. Patient able to give any additional history other than the fall she has no memory of it patient has no additional complaints at this time REVIEW OF SYSTEMS: Respiratory: No cough, no dyspnea. Cardiovascular: No chest pain, no palpitations. Gastrointestinal: No vomiting, no abdominal pain. Musculoskeletal: No back pain. Remainder of the 14 system rev: Yes Reviewed Nurses Notes: Yes Old Medical Records Reviewed: Yes Constitutional Vital Sign - Last 24 Hours 03/27/19 03/27/19 03/27/19 03/27/19 11:40 11:42 11:53 11:54 Pulse 86 Resp 20 B/P (MAP) 146/100 (115) 148/106 (120) 148/106 Pulse Ox 100 O2 Delivery Nasal Cannula O2 Flow Rate 2.0 03/27/19 03/27/19 12:00 12:30 Pulse 87 93 Resp 9 B/P (MAP) 138/84 (102) 136/96 (109) Pulse Ox 100 100 Physical Exam General Appearance: Patient answers to her name airway is patent and protected at this time opening her eyes on command GCS of 14[ ] Eyes: Pupils dilated but responsive symmetrical Respiratory: Chest is non tender, lungs are clear to auscultation. Cardiac: regular rate and rhythm [ ] Gastrointestinal: Abdomen is soft and non tender, no masses, bowel sounds normal. Musculoskeletal: Neck: Neck is supple and non tender. Extremities have full range of motion and are non tender. Skin: No rashes or lesions. Neurologically GCS of 14 and presentation slow to answer questions slow to respond consistent with probable closed head injury DIFFERENTIAL DIAGNOSIS: After history and physical exam differential diagnosis was considered for closed head injury intracranial mass bleed or lesion, pathology traumatic pneumothorax Medical Decision Making Data Points Result Diagram: 03/27/19 1140 03/27/19 1140 Laboratory Hematology Test 03/27/19 11:40 03/27/19 12:48 Red Blood Count 5.29 M/uL (4.17-5.56) Mean Corpuscular Volume 87.2 fL (80.0-96.0) Mean Corpuscular Hemoglobin 29.5 pg (26.0-33.0) Mean Corpuscular Hemoglobin Concent 33.8 g/dL (32.0-36.0) Red Cell Distribution Width 12.9 % (11.5-14.5) Mean Platelet Volume 8.2 fL (7.2-11.1) Neutrophils (%) (Auto) 57.6 % (39.4-72.5) Lymphocytes (%) (Auto) 32.3 % (17.6-49.6) Monocytes (%) (Auto) 8.0 % (4.1-12.4) Eosinophils (%) (Auto) 0.8 % (0.4-6.7) Basophils (%) (Auto) 1.3 % (0.3-1.4) Nucleated RBC Relative Count (auto) 0.0 /100WBC Neutrophils # (Auto) 6.2 K/uL (2.0-7.4) Lymphocytes # (Auto) 3.5 K/uL (1.3-3.6) Monocytes # (Auto) 0.9 K/uL (0.3-1.0) Eosinophils # (Auto) 0.1 K/uL (0.0-0.5) Basophils # (Auto) 0.1 K/uL (0.0-0.1) Nucleated RBC Absolute Count (auto) 0.00 K/uL Prothrombin Time 13.2 seconds (12.0-14.4) Prothromb Time International Ratio 1.00 Activated Partial Thromboplast Time 37 seconds (23-35) Sodium Level 139 mmol/L (137-145) Potassium Level 3.8 mmol/L (3.5-5.0) Chloride Level 102 mmol/L (98-107) Carbon Dioxide Level 25 mmol/L (22-31) Blood Urea Nitrogen 9 mg/dl (7-18) Creatinine 0.80 mg/dl (0.52-1.04) Glomerular Filtration Rate Calc > 60.0 Random Glucose 79 mg/dl (75-110) Lactate 1.2 mmol/L (0.7-2.1) Calcium Level 9.9 mg/dl (8.4-10.2) Total Bilirubin 0.4 mg/dl (0.2-1.3) Aspartate Amino Transf (AST/SGOT) 29 U/L (0-35) Alanine Aminotransferase (ALT/SGPT) 34 U/L (0-56) Alkaline Phosphatase 66 U/L (0-126) Total Protein 7.9 g/dl (6.3-8.2) Albumin 4.7 g/dl (3.5-5.0) Lipase 53 U/L (23-300) Human Chorionic Gonadotropin, Qual Negative (NEGATIVE) Serum Alcohol < 10 mg/dl Urine Color Yellow Urine Clarity Slightly-cloudy Urine pH 6.0 pH (4.8-9.5) Urine Specific Miller 1.019 Urine Protein Negative mg/dL (NEGATIVE) Urine Glucose (UA) Negative mg/dL (NEGATIVE) Urine Ketones Trace mg/dL (NEGATIVE) Urine Blood Negative (NEGATIVE) Urine Nitrite Negative (NEGATIVE) Urine Bilirubin Negative (NEGATIVE) Urine Urobilinogen Negative mg/dL (0.2-1.9) Urine Leukocyte Esterase Negative (NEGATIVE) Urine RBC 4 /HPF (0-2/HPF) Urine WBC 1 /HPF (0-5/HPF) Urine Squamous Epithelial Cells Many /LPF (</=FEW) Urine Bacteria Few /HPF (NONE-FEW) Urine Mucus None /HPF (NONE-FEW) Chemistry Test 03/27/19 11:40 03/27/19 12:48 White Blood Count 10.8 k/uL (4.5-11.0) Red Blood Count 5.29 M/uL (4.17-5.56) Hemoglobin 15.6 g/dL (12.0-16.0) Hematocrit 46.1 % (34.0-47.0) Mean Corpuscular Volume 87.2 fL (80.0-96.0) Mean Corpuscular Hemoglobin 29.5 pg (26.0-33.0) Mean Corpuscular Hemoglobin Concent 33.8 g/dL (32.0-36.0) Red Cell Distribution Width 12.9 % (11.5-14.5) Platelet Count 380 K/uL (150-450) Mean Platelet Volume 8.2 fL (7.2-11.1) Neutrophils (%) (Auto) 57.6 % (39.4-72.5) Lymphocytes (%) (Auto) 32.3 % (17.6-49.6) Monocytes (%) (Auto) 8.0 % (4.1-12.4) Eosinophils (%) (Auto) 0.8 % (0.4-6.7) Basophils (%) (Auto) 1.3 % (0.3-1.4) Nucleated RBC Relative Count (auto) 0.0 /100WBC Neutrophils # (Auto) 6.2 K/uL (2.0-7.4) Lymphocytes # (Auto) 3.5 K/uL (1.3-3.6) Monocytes # (Auto) 0.9 K/uL (0.3-1.0) Eosinophils # (Auto) 0.1 K/uL (0.0-0.5) Basophils # (Auto) 0.1 K/uL (0.0-0.1) Nucleated RBC Absolute Count (auto) 0.00 K/uL Prothrombin Time 13.2 seconds (12.0-14.4) Prothromb Time International Ratio 1.00 Activated Partial Thromboplast Time 37 seconds (23-35) Glomerular Filtration Rate Calc > 60.0 Lactate 1.2 mmol/L (0.7-2.1) Calcium Level 9.9 mg/dl (8.4-10.2) Total Bilirubin 0.4 mg/dl (0.2-1.3) Aspartate Amino Transf (AST/SGOT) 29 U/L (0-35) Alanine Aminotransferase (ALT/SGPT) 34 U/L (0-56) Alkaline Phosphatase 66 U/L (0-126) Total Protein 7.9 g/dl (6.3-8.2) Albumin 4.7 g/dl (3.5-5.0) Lipase 53 U/L (23-300) Human Chorionic Gonadotropin, Qual Negative (NEGATIVE) Serum Alcohol < 10 mg/dl Urine Color Yellow Urine Clarity Slightly-cloudy Urine pH 6.0 pH (4.8-9.5) Urine Specific Miller 1.019 Urine Protein Negative mg/dL (NEGATIVE) Urine Glucose (UA) Negative mg/dL (NEGATIVE) Urine Ketones Trace mg/dL (NEGATIVE) Urine Blood Negative (NEGATIVE) Urine Nitrite Negative (NEGATIVE) Urine Bilirubin Negative (NEGATIVE) Urine Urobilinogen Negative mg/dL (0.2-1.9) Urine Leukocyte Esterase Negative (NEGATIVE) Urine RBC 4 /HPF (0-2/HPF) Urine WBC 1 /HPF (0-5/HPF) Urine Squamous Epithelial Cells Many /LPF (</=FEW) Urine Bacteria Few /HPF (NONE-FEW) Urine Mucus None /HPF (NONE-FEW) Coagulation Test 03/27/19 11:40 Prothrombin Time 13.2 seconds Prothromb Time International Ratio 1.00 Activated Partial Thromboplast Time 37 seconds Toxicology Test 03/27/19 11:40 Serum Alcohol < 10 mg/dl Urinalysis Test 03/27/19 12:48 Urine Color Yellow Urine Clarity Slightly-cloudy Urine pH 6.0 pH (4.8-9.5) Urine Specific Miller 1.019 Urine Protein Negative mg/dL (NEGATIVE) Urine Glucose (UA) Negative mg/dL (NEGATIVE) Urine Ketones Trace mg/dL (NEGATIVE) Urine Blood Negative (NEGATIVE) Urine Nitrite Negative (NEGATIVE) Urine Bilirubin Negative (NEGATIVE) Urine Urobilinogen Negative mg/dL (0.2-1.9) Urine Leukocyte Esterase Negative (NEGATIVE) Urine RBC 4 /HPF (0-2/HPF) Urine WBC 1 /HPF (0-5/HPF) Urine Squamous Epithelial Cells Many /LPF (</=FEW) Urine Bacteria Few /HPF (NONE-FEW) Urine Mucus None /HPF (NONE-FEW) ED Course/Re-evaluation ED Course ED course medical decision making 20 femorofemoral spell off a ladder striking her head loss of consciousness was altered mental arrival however GCS was 14 no airway impingement intervention was necessary negative fast scan negative primary and secondary survey otherwise neurologically intact. Patient is CT had C-spine chest abdomen and pelvis x-rays of the shoulder all of which were negative she became more arousable still amnestic of the event with an obvious closed head injury. Admitting today to trauma Decision to Disposition Date: March 27, 2019 Decision to Disposition Time: 14:09 Depart Departure Latest Vital Signs Vital Signs Date Time Temp Pulse Resp B/P (MAP) Pulse Ox O2 Delivery O2 Flow Rate FiO2 03/27/19 12:30 93 136/96 (109) 100 03/27/19 12:00 9 03/27/19 11:54 Nasal Cannula 03/27/19 11:53 2.0 Impression: Primary Impression: Closed head injury Condition: Improved Disposition: Admitted from ER DELFIN HOPE MD March 27, 2019 11:44
[2019-03-27 11:54] LABS: PLATELET COUNT, AUTOMATED 380 K/uL (150-450)
[2019-03-27] MEDS ORDERED: NS(*) 0.9% 1000 ML BAG 1,000 ML IV ONE (12:00)
[2019-03-27] MEDS ORDERED: IOPAMIDOL 76% 100 ML INFUS BTL 100 ML ONE (12:02)
--- NOTE | 2019-03-27 12:51 | RADIOLOGY IMAGING REPORT ---
FACILITY: [facility] PATIENT NAME: William Beltran : 1995 MR: [id number] V: [id number] EXAM DATE: ORDERING PHYSICIAN: DELFIN HOPE TECHNOLOGIST: Location: [facility] Patient: William Beltran : 1995 Visit/Account:[id number] Date of Sevice: 03/27/2019 CT BRAIN NO CONTRAST HISTORY: Trauma COMPARISON STUDIES: None TECHNIQUE: Contiguous axial images were obtained from the skull base to the vertex. One of the [employer] dose optimization techniques was utilized in the performance of this exam: automated exposure co ntrol; adjustment of the mA and/or kv according to patient size; or use of iterative reconstruction t echnique. Specific details can be referenced in the facility's radiology CT exam operational policy. FINDINGS: Hemorrhage: Negative Ventricles / sulci / fissures: Negative Masses / midline shift: Negative White matter: Negative Ramsey-white differentiation: Negative Vessels: Negative Extra-axial spaces: Negative Bones/skull base: Negative Visualized mastoid air cells / paranasal sinuses: Negative Scalp and soft tissues: Negative. Other findings: None significant IMPRESSION: 1. Negative for acute intracranial blood or skull fracture. Report Dictated By: Shawn Lovett MD at 03/27/2019 12:44 PM Report E-Signed By: Shawn Lovett MD at 03/27/2019 12:47 PM WSN:[id number]
--- NOTE | 2019-03-27 12:54 | RADIOLOGY IMAGING REPORT ---
FACILITY: [facility] PATIENT NAME: William Beltran : 1995 MR: [id number] V: [id number] EXAM DATE: ORDERING PHYSICIAN: DELFIN HOPE TECHNOLOGIST: Location: [facility] Patient: William Beltran : 1995 Visit/Account:[id number] Date of Sevice: 03/27/2019 CT VERTEBRA CERVICAL (NON CON) HISTORY: Trauma COMPARISON STUDIES: none TECHNIQUE: Axial images were obtained from the skull base through the upper thoracic spine without i ntravenous contrast. Coronal and sagittal reformatted images were obtained from the axial source data . One of the following dose optimization techniques was utilized in the performance of this exam: aut omated exposure control; adjustment of the mA and/or kv according to patient size; or use of iterativ e reconstruction technique. Specific details can be referenced in the facility's radiology CT exam op erational policy. FINDINGS: Pre-vertebral soft tissues: Negative Fracture/alignment: negative Vertebral bodies: Negative Posterior elements: Negative Disc Spaces: Negative Visualized soft tissues anterior neck: Negative Visualized lung / mediastinum: Negative Other findings: None significant IMPRESSION: 1. Negative for acute fracture or spondylolisthesis. Report Dictated By: Shawn Lovett MD at 03/27/2019 12:47 PM Report E-Signed By: Shawn Lovett MD at 03/27/2019 12:49 PM WSN:[id number]
--- NOTE | 2019-03-27 13:14 | RADIOLOGY IMAGING REPORT ---
[place] [facility] [place] NAME: William Beltran : 1995 MR: [id number] V: [id number] EXAM DATE: ORDERING PHYSICIAN: DELFIN HOPE TECHNOLOGIST: Location: [facility] [place] Patient: William Beltran : 1995 Visit/Account:[id number] Date of Sevice: 03/27/2019 CT CHEST ABDOMEN PELVIS W/CON HISTORY: trauma TECHNIQUE: CT imaging was obtained through the chest, abdomen and pelvis with intravenous contrast. One of the following dose optimization techniques was utilized in the performance of this exam: autom ated exposure control; adjustment of the mA and/or kv according to patient size; or use of iterative reconstruction technique. Specific details can be referenced in the facility's radiology CT exam oper ational policy. CONTRAST: 75 cc of Isovue-370 COMPARISON: None. FINDINGS: CHEST: Lower neck: Negative. Vessels: Negative. Heart and pericardium: Negative Mediastinum/hilum/lymph nodes: Negative. Lungs/pleura: Mild dependent opacities, likely atelectasis. No pneumothorax or pleural effusion. Bones/soft tissues: Negative. Other findings: None significant ABDOMEN/PELVIS: Hepatobiliary: Cholecystectomy. Spleen: Negative. Adrenals: Negative. Pancreas: Negative. Kidneys/ureters/bladder: Nonobstructing bilateral renal calculi measuring up to 2-3 mm. No hydroneph rosis. Bowel/peritoneum/mesentery: Negative. Vessels: Negative. Lymph nodes: Negative. Pelvic genitourinary: 2.6 cm right ovarian cyst. Bones/soft tissues: Negative. Other findings: None significant IMPRESSION: 1. No evidence of traumatic injury to the chest, abdomen or pelvis. Report Dictated By: Shawn Lovett MD at 03/27/2019 12:51 PM Report E-Signed By: Shawn Lovett MD at 03/27/2019 1:10 PM WSN:[id number]
--- NOTE | 2019-03-27 13:20 | RADIOLOGY IMAGING REPORT ---
FACILITY: [facility] PATIENT NAME: William Beltran : 1995 MR: [id number] V: [id number] EXAM DATE: ORDERING PHYSICIAN: DELFIN HOPE TECHNOLOGIST: Location: [facility] [place] Patient: William Beltran : 1995 Visit/Account:[id number] Date of Sevice: 03/27/2019 CHEST SINGLE AP History: trauma Additional history: Fell off ladder FINDINGS: Comparison studies: None. Tubes and Lines: None. Lungs and pleura: Well aerated. No evidence of focal consolidation or pleural effusions. No evid ence of pneumothorax. Mediastinum: normal. Cardiac silhouette: normal . Osseous structures: No displaced rib fractures are identified. IMPRESSION: Negative exam. Report Dictated By: Ozzy Rodríguez MD at 03/27/2019 1:14 PM Report E-Signed By: Ozzy Rodríguez MD at 03/27/2019 1:16 PM WSN:[id number]
--- NOTE | 2019-03-27 13:23 | RADIOLOGY IMAGING REPORT ---
[place] [facility] [place]: William Beltran : 1995 MR: [id number] V: [id number] EXAM DATE: ORDERING PHYSICIAN: DELFIN HOPE TECHNOLOGIST: Location: [facility] Patient: William Beltran : 1995 Visit/Account:[id number] Date of Sevice: 03/27/2019 SHOULDER MIN 2 VIEWS LEFT HISTORY: trauma Additional history: None COMPARISON: None. FINDINGS: Four views performed. Osseous structures of the left shoulder appear intact. There is no evidence o f fracture or dislocation. Visualized ribs appear intact. IMPRESSION: Normal left shoulder. Report Dictated By: Ozzy Rodríguez MD at 03/27/2019 1:16 PM Report E-Signed By: Ozzy Rodríguez MD at 03/27/2019 1:18 PM WSN:[id number]
[2019-03-27] MEDS ORDERED: GABA-549 PO ×3 (14:32→14:49)
[2019-03-27] MEDS ORDERED: CYCL10TA29 PO (14:32)
[2019-03-27] MEDS ORDERED: TRAZ50TA52 PO ×2 (14:32→14:49)
[2019-03-27] MEDS ORDERED: HYDR-2966 PO ×2 (14:32→14:49)
[2019-03-27] MEDS ORDERED: SUCR1TAB85 PO (14:49)
[2019-03-27] MEDS ORDERED: NAPR500T31 PO (14:49)
[2019-03-27] MEDS ORDERED: B CO PO (14:49)
[2019-03-27] MEDS ORDERED: CHOL10005 PO (14:49)
[2019-03-27] MEDS ORDERED: VENL75CA58 PO (14:49)
[2019-03-27 15:04] VITALS: BP 124/74
[2019-03-27] MEDS ORDERED: HYDROmorphone HCL 2 MG/ML SDV IVP PRN (15:50)
[2019-03-27] MEDS: ACETAMINOPHEN 325 MG TAB PO PRN (16:17)
[2019-03-27] MEDS ORDERED: METR-1 PO (18:23)
[2019-03-27] MEDS ORDERED: VENL75TA98 PO (18:30)
[2019-03-27] MEDS ORDERED: LACT1CAP6 PO (18:30)
[2019-03-27] MEDS: APAP/HYDROCODONE 325/7.5 TAB PO PRN (18:33)
[2019-03-27 18:54] VITALS: BP 137/88
[2019-03-27] MEDS ORDERED: PROMETHAZINE 25 MG/ML 1 ML AMP IVP PRN (20:05)
[2019-03-27] MEDS: ONDANSETRON 4 MG/2 ML VIAL IVP PRN (20:28)
--- NOTE | 2019-03-27 20:39 | Gen Surgery History & Physical ---
History of Present Illness Chief Complaint fall from ladder History of Present Illness 23 yo f s/p fall from about 2 feet. lost consciousness. now c/o headache and left neck pain. +vomiting. no abd pain. has had diarrhea for about 2 mo. no bl ood in stool. h/o seizures as a child. History Home Meds Reported Medications Lactobacillus Combination No.4 (PROBIOTIC) 1 Each Capsule, 1 EACH PO DAILY, CAPSULE 03/27/19 Venlafaxine Hcl (VENLAFAXINE HCL ER) 75 Mg Tab.er.24, 75 MG PO HS 03/27/19 Metronidazole (FLAGYL) 500 Mg Tablet, 500 MG PO TID, TAB 03/27/19 Hydrochlorothiazide (HYDROCHLOROTHIAZIDE) 25 Mg Tablet, 0.5 TAB PO PRN PRN for SWELLING, TAB 1/2 tab three times a week 03/27/19 Naproxen (NAPROXEN) 500 Mg Tablet, 500 MG PO PRN PRN for PAIN, TAB 03/27/19 Sucralfate (CARAFATE) 1 Gm Tablet, 1 GM PO QID PRN for PAIN 03/27/19 Cholecalciferol (Vitamin D3) (VITAMIN D3) 1,000 Unit Tablet, 5000 UNIT PO DAILY, TAB 03/27/19 B Complex With Vitamin C (B-COMPLEX WITH VITAMIN C) 1 Each Tablet, 1 EACH PO DAILY 03/27/19 Trazodone Hcl (TRAZODONE HCL) 50 Mg Tablet, 25 MG PO QHS 03/27/19 Gabapentin (GABAPENTIN) 300 Mg Capsule, 1200 MG PO QPM, CAPSULE 03/27/19 Gabapentin (GABAPENTIN) 300 Mg Capsule, 1200 MG PO QAM, CAPSULE 03/27/19 Venlafaxine Hcl (EFFEXOR XR) 75 Mg Cap.er.24h, 150 MG PO QAM 03/27/19 Discontinued Reported Medications Cyclobenzaprine Hcl (CYCLOBENZAPRINE HCL) 10 Mg Tablet, 10 MG PO TID, #9 TAB 03/27/19 Trazodone Hcl (TRAZODONE HCL) 50 Mg Tablet, 50 MG PO QHS 03/27/19 Hydrochlorothiazide (HYDROCHLOROTHIAZIDE) 25 Mg Tablet, 1 TAB PO QDAY, TAB 03/27/19 Gabapentin (GABAPENTIN) 300 Mg Capsule, 300 MG PO TID, CAPSULE 03/27/19 Allergies: Coded Allergies: No Known Drug Allergies (Unverified , 03/27/19) Patient History: FH: diabetes mellitus FATHER FH: hypertension FATHER MOTHER FH: mitral regurgitation MOTHER Review of Systems Constitutional: Other (per hpi) Exam General Appearance: Alert, Awake, No Acute Distress Eyes: Other (per, eomi) ENT: Moist Mucous Membranes Neck: Other (ttp left post neck muscles, cspine nttp) Cardiovascular: Other (reg rate) Respiratory: No Respiratory Distress GI: Other (abd soft, obese) Integumentary: Skin Intact without Lesion / Mass Psych: Appropriate Mood & Affect Medical Decision Making Data Points Result Diagram: 03/27/19 1140 03/27/19 1140 Assessment and Plan Problems: (1) Closed head injury Status: Acute Assessment & Plan: 03/27/19: no fractures or intracranial bleed. concussion diet as cesar, pain control, serial exams Venous Thromboembolism Antithrombotics Is Pt On Any Antithrombotics?: No DIMA CHEUNG March 27, 2019 20:39
[2019-03-27] MEDS ORDERED: VENLAFAXINE REG 75 MG TAB PO SCH (21:35)
[2019-03-27] MEDS: HYDROCHLOROTHIAZIDE 25 MG TAB PO SCH (21:35)
[2019-03-27] MEDS ORDERED: SUCRALFATE 1 GM TAB PO PRN (21:35)
[2019-03-27] MEDS: traZODone HCL 50 MG TAB PO SCH (22:12)
[2019-03-27] MEDS: GABAPENTIN 300 MG CAP PO SCH (22:12)
[2019-03-27] MEDS: METRONIDAZOLE 500 MG TABLET PO SCH (22:12)
[2019-03-28] MEDS: APAP/HYDROCODONE 325/7.5 TAB PO PRN (02:44)
[2019-03-28 02:45] VITALS: BP 113/55
[2019-03-28] MEDS: ONDANSETRON 4 MG/2 ML VIAL IVP PRN (02:45)
[2019-03-28 06:58] VITALS: BP 120/63
--- NOTE | 2019-03-28 08:30 | EKG ---
FACILITY: [facility] PATIENT NAME: ADIEL MCGEE : [id number] MR: [id number] V: [id number] EXAM DATE: ORDERING PHYSICIAN: DELFIN HOPE TECHNOLOGIST: CHIP Welch Reason : TARAUMA Blood Pressure : / mmHG Vent. Rate : 086 BPM Atrial Rate : 086 BPM P-R Int : 142 ms QRS Dur : 078 ms QT Int : 364 ms P-R-T Axes : 044 060 030 degrees QTc Int : 435 ms Normal sinus rhythm Normal ECG No previous ECGs available Confirmed by ROBERT NOLEN ([id number]) on 03/28/2019 6:18:18 PM Referred By: JAYY Confirmed By:ROBERT NOLEN
[2019-03-28] MEDS ORDERED: LACTOBACILLUS ACIDOPHILUS TAB PO ONE (09:00)
[2019-03-28] MEDS: GABAPENTIN 300 MG CAP PO SCH ×2 (09:12→20:42)
[2019-03-28] MEDS: VENLAFAXINE XR 75 MG CAPCR PO SCH (09:12)
[2019-03-28] MEDS: METRONIDAZOLE 500 MG TABLET PO SCH ×3 (09:12→20:42)
[2019-03-28] MEDS: CHOLECALCIFEROL 1000 UNIT TAB PO SCH (09:13)
[2019-03-28] MEDS: VITAMIN B CPLX/VIT C/FOLIC AC PO SCH (09:14)
[2019-03-28] MEDS: NAPROXEN 500 MG TAB PO PRN ×2 (09:14→18:19)
[2019-03-28 10:46] VITALS: BP 133/79
--- NOTE | 2019-03-28 11:31 | General Surgery Progress Note ---
Subjective Progress Notes Subjective vomited last night. still having pain. Physical Exam Vital Signs Date Time Temp Pulse Resp B/P (MAP) Pulse Ox O2 Delivery O2 Flow Rate FiO2 03/28/19 10:46 98.5 77 16 133/79 (97) 94 Room Air 03/28/19 06:58 0.5 Intake and Output 03/28/19 07:00 Intake Total 1720 ml Balance 1720 ml Intake Oral 720 ml IV Total 1000 ml # Voids 3 General Appearance: No Acute Distress, Other (stable) Cardiovascular: Other (reg rate) Respiratory: No Respiratory Distress GI: Other (soft) Result Diagram: 03/27/19 1140 03/27/19 1140 Assessment and Plan Problems: (1) Closed head injury Status: Acute Assessment & Plan: 03/27/19: no fractures or intracranial bleed. concussion diet as cesar, pain control, serial exams 03/28/19: some vomiting last night. still having pain. continue monitoring. home today or tomorrow. Exam Sepsis Risk: No Definite Risk DIMA CHEUNG March 28, 2019 11:31
[2019-03-28 11:41] VITALS: BP 135/75
--- NOTE | 2019-03-28 11:47 | Medical Nutrition Therapy ---
Nutrition Anthropometrics Weight (Pounds): 186 Weight (Calculated Kilograms): 84.368 Toño Nutrition Score: Adequate Toño Nutrition Risk Score: 20 Dietary Referral Nutrition Risk Factors: Nutrition Risk Comment: Physical Findings Skin Appearance Skin Appearance: Edema Edema Location Modifier: Edema Location: Type of Edema: Degree of Edema: Gastrointestinal Symptoms GI Symtoms: Nausea Tube Present: Vomiting,Diarrhea Bowel Sounds: Recent Bowel Pattern: Stool Characteristics: Nutrition/Food History No Significant Nutr. HX Good Skipped Meals: No Nutritional Diagnosis Nutritional Risk Acuity 4: Good Appetite Nutritional Acuity: 4-Low Energy Requirement: 2114 (25kcal/kg) Protein Requirement: 85 (1g/kg) Fluid Requirement: 2114 Diet Type: Regular Nutrition Intervention: Cont diet as ordered Nutrition Monitoring & Eval Nutrition Goals: Eat 75-100% Meal Nutrition Follow-Up: Good Intake Nutrition Monitoring: Continue to monitor for adequate intake. Monitor for diarrhea. RD Patient Assessment Time: [address] Assessment Type: RD Assessment Patient Nutrition Acuity: 4-Low Follow Up Date: Apr 02, 2019 Nutritional Comment: Pt admit for closed head injury. No pertinent labs. Eating well. Only concern would be reported diarrhea for 2 months per H&P. Monitor intake and output. KODI GOLDSTEIN March 28, 2019 11:47
--- NOTE | 2019-03-28 12:00 | RADIOLOGY IMAGING REPORT ---
FACILITY: [facility] [place] PATIENT NAME: Cara Yeager : 1995 MR: [id number] V: [id number] EXAM DATE: ORDERING PHYSICIAN: DIMA CHEUNG TECHNOLOGIST: Location: [facility] [place] Patient: Cara Yeager : 1995 Visit/Account:[id number] Date of Sevice: 03/28/2019 Exam type: CHEST SINGLE AP History: chest pain Comparison: March 27, 2019. Findings: The lungs are free of acute effusions, infiltrates or edema. There is no evidence of a pneumothorax or pneumomediastinum. The cardiac silhouette is normal in size. The trachea is in midline. IMPRESSION: 1. No acute cardiopulmonary process is seen Report Dictated By: Ramya Batres MD at 03/28/2019 11:56 AM Report E-Signed By: Ramya Batres MD at 03/28/2019 11:57 AM WSN:[email or web address]
[2019-03-28] MEDS: ACETAMINOPHEN 325 MG TAB PO PRN ×2 (14:35→20:42)
[2019-03-28 15:30] VITALS: BP 132/81
[2019-03-28 19:42] VITALS: BP 127/56
[2019-03-28] MEDS: traZODone HCL 50 MG TAB PO SCH (20:42)
[2019-03-28] MEDS: HYDROCHLOROTHIAZIDE 25 MG TAB PO SCH (20:43)
[2019-03-28] MEDS ORDERED: VENLAFAXINE XR 75 MG CAPCR PO SCH (21:00)
[2019-03-29] MEDS: ONDANSETRON 4 MG/2 ML VIAL IVP PRN ×2 (05:49→12:26)
[2019-03-29] MEDS: NAPROXEN 500 MG TAB PO PRN ×2 (06:06→13:38)
[2019-03-29 07:41] VITALS: BP 121/76
[2019-03-29] MEDS: CHOLECALCIFEROL 1000 UNIT TAB PO SCH (08:46)
[2019-03-29] MEDS: VITAMIN B CPLX/VIT C/FOLIC AC PO SCH (08:46)
[2019-03-29] MEDS: METRONIDAZOLE 500 MG TABLET PO SCH ×2 (08:46→13:38)
[2019-03-29] MEDS: VENLAFAXINE XR 75 MG CAPCR PO SCH (08:46)
[2019-03-29] MEDS: GABAPENTIN 300 MG CAP PO SCH (08:49)
--- NOTE | 2019-03-29 08:59 | Antimicrobial Stewardship ---
Antimicrobial Stewardship Comment On Flagyl 500 mg po tid as outpatient that was continued while inpatient. Presumably for 2 month diarrhea history. Would be appropriate depending on cause of diarrhea. Reviewed for Drug Interaction: Yes Monitored for Toxicities: Yes Clinically stable/improving: Yes Comment Patient reports normal BM while in hospital. Determine cumulative duration: indivdualized depending on cause of diarrhea. ELY LEDESMA March 29, 2019 08:59
[2019-03-29 11:29] VITALS: BP 122/65
[2019-03-29] MEDS: ACETAMINOPHEN 325 MG TAB PO PRN (11:31)
[2019-03-29] MEDS ORDERED: ONDA4TAB9 PO (15:40)
--- NOTE | 2019-03-29 15:41 | Hospitalist Depart ---
Discharge Summary Reason for Hosp/Final Diag: (1) Closed head injury Status: Acute Hospital Course & Plan: 03/27/19: no fractures or intracranial bleed. concussion diet as cesar, pain control, serial exams 03/28/19: some vomiting last night. still having pain. continue monitoring. home today or tomorrow. 03/29/19: improved today. some nausea. will d/c home with nausea meds. Departure Weight (Pounds): 186 Result Diagram: 03/27/19 1140 03/27/19 1140 Condition: Improved Discharge Instructions Home Meds Active Scripts Ondansetron 4 Mg Odt (ONDANSETRON 4 MG ODT) 4 Mg Tab.rapdis, 4 MG PO Q8H PRN for PAIN, #20 TAB Prov:DIMA CHEUNG 03/29/19 Reported Medications Lactobacillus Combination No.4 (PROBIOTIC) 1 Each Capsule, 1 EACH PO DAILY, CAPSULE 03/27/19 Venlafaxine Hcl (VENLAFAXINE HCL ER) 75 Mg Tab.er.24, 75 MG PO HS 03/27/19 Metronidazole (FLAGYL) 500 Mg Tablet, 500 MG PO TID, TAB 03/27/19 Hydrochlorothiazide (HYDROCHLOROTHIAZIDE) 25 Mg Tablet, 0.5 TAB PO PRN PRN for SWELLING, TAB 1/2 tab three times a week 03/27/19 Naproxen (NAPROXEN) 500 Mg Tablet, 500 MG PO PRN PRN for PAIN, TAB 03/27/19 Sucralfate (CARAFATE) 1 Gm Tablet, 1 GM PO QID PRN for PAIN 03/27/19 Cholecalciferol (Vitamin D3) (VITAMIN D3) 1,000 Unit Tablet, 5000 UNIT PO DAILY, TAB 03/27/19 B Complex With Vitamin C (B-COMPLEX WITH VITAMIN C) 1 Each Tablet, 1 EACH PO D AILY 03/27/19 Trazodone Hcl (TRAZODONE HCL) 50 Mg Tablet, 25 MG PO QHS 03/27/19 Gabapentin (GABAPENTIN) 300 Mg Capsule, 1200 MG PO QPM, CAPSULE 03/27/19 Gabapentin (GABAPENTIN) 300 Mg Capsule, 1200 MG PO QAM, CAPSULE 03/27/19 Venlafaxine Hcl (EFFEXOR XR) 75 Mg Cap.er.24h, 150 MG PO QAM 03/27/19 Discontinued Reported Medications Cyclobenzaprine Hcl (CYCLOBENZAPRINE HCL) 10 Mg Tablet, 10 MG PO TID, #9 TAB 03/27/19 Trazodone Hcl (TRAZODONE HCL) 50 Mg Tablet, 50 MG PO QHS 03/27/19 Hydrochlorothiazide (HYDROCHLOROTHIAZIDE) 25 Mg Tablet, 1 TAB PO QDAY, TAB 03/27/19 Gabapentin (GABAPENTIN) 300 Mg Capsule, 300 MG PO TID, CAPSULE 03/27/19 Diet: Regular Activity: As Tolerated Special Instructions: f/u pcp within 2 wks Venous Thromboembolism Antithrombotics Is Pt On Any Antithrombotics?: No DIMA CHEUNG March 29, 2019 15:41
[2019-03-29 16:41] VITALS: BP 128/81
== END 2019-03-29 15:42 | disposition home or self-care (01) ==
LOC: ER 12:40 → MERGE 14:30 → INTOOBSV 14:30 → MED 14:30
PROVIDERS: ADMIT Surgery; ATTEND Surgery
DX: S09.90XA Unspecified injury of head, initial encounter (principal); W11.XXXA Fall on and from ladder, initial encounter; R51 Headache; M54.2 Cervicalgia; R19.7 Diarrhea, unspecified; R11.2 Nausea with vomiting, unspecified
CPT/HCPCS: 36415; 36416; 70450; 71045; 71260; 72125; 73030; 74177; 80320; 81001; 82948; 83605; 83690; 84703; 85025; 85610; 85730; 93005; 96360; 99284; G0378; J2405; J2550; J7030; Q9967; 82040; 82247; 82310; 82374; 82435; 82565; 82947; 84075; 84132; 84155; 84295; 84450; 84460; 84520

== ENCOUNTER → 2019-03-27 | Outpatient (CLI) | payer BC ==
[~2019-03-27] MED LIST changes: +B CO PO; +LACT1CAP6 PO; +NAPR500T31 PO; -TRAZ50TA34 PO; +TRAZ50TA52 PO; +VENL75CA58 PO; +VENL75TA98 PO
== END ==
LOC: AMB 11:05
PROVIDERS: ATTEND Nurse Practitioner
DX: R51 Headache (principal); R41.82 Altered mental status, unspecified
CPT/HCPCS: A0425; A0427